=== PATIENT | male | born 1955 | race Caucasian/White ===

== ENCOUNTER 2024-02-19 20:26 | Emergency (ER) | payer OTHER, SELFPAY ==
--- NOTE | ~2024-02-19 | CT_ITS ---
EXAMINATION: CT ANGIOGRAM CHEST CLINICAL INFORMATION: Right-sided pain COMPARISON: Chest x-ray 02/19/2024 TECHNIQUE: Multiple axial images were obtained through the chest after the administration of 65 mL of Omnipaque 350 intravenous contrast. Extensive vascular post-processing including two-dimensional and three-dimensional reformatted images were created and reviewed on an independent workstation. This CT examination was performed using dose optimization techniques as appropriate, variously including the following: *Automated exposure control *Adjustment of mA and/or kV according to patient size (this includes techniques or standardized protocols for targeted exams where dose is matched to indication/reason for exam; i.e. extremities or head) *Use of iterative reconstruction technique DLP: 516 mGy-cm FINDINGS: No filling defects are seen in the main, lobar, or segmental pulmonary arteries to suggest the presence of pulmonary emboli. Mild bronchial wall thickening noted. No regions of consolidation bilaterally. No pneumothorax or pleural effusion. Thyroid gland is grossly unremarkable. There are subcentimeter mediastinal lymph nodes within the range of normal variation. Borderline cardiomegaly without pericardial effusion. Coronary artery calcifications are present. There is atherosclerotic calcification along the aorta. No axillary lymphadenopathy is present. Visualized portions of the upper abdomen are within normal limits. 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 CT/CT angio chest PE protocol IMPRESSION: 1. No pulmonary embolus identified. 2. Mild bronchial wall thickening, which can be seen with acute or chronic bronchitis. 3. Borderline cardiomegaly. 4. Coronary artery calcifications. Correlation with cardiac risk factors is recommended. VTE: negative Electronically signed by: Dominick Randolph MD 02/20/2024 03:25 AM EDT
--- NOTE | ~2024-02-19 | XR_ITS ---
EXAMINATION: XR CHEST CLINICAL INFORMATION: Chest pain COMPARISON: None available. TECHNIQUE: 2 views of the chest were obtained. FINDINGS: No significant abnormality is noted involving the heart, lungs, mediastinum, bony thorax or soft tissues. XR/XR chest 2V IMPRESSION: Unremarkable examination. Electronically signed by: Thomas Myers DO 02/19/2024 09:51 PM EDT
[2024-02-19 20:53] VITALS: BP 149/76; PULSE 63; RESP 14; TEMP 36.6; O2SAT 97; BMI 38.5
--- NOTE | 2024-02-19 20:54 | ECG_ITS ---
Test Reason : CHEST PAIN Blood Pressure : / mmHG Vent. Rate : 055 BPM Atrial Rate : 055 BPM P-R Int : 210 ms QRS Dur : 096 ms QT Int : 438 ms P-R-T Axes : 037 010 012 degrees QTc Int : 419 ms Sinus bradycardia with 1st degree A-V block with Premature atrial complexes Cannot rule out Anterior infarct , age undetermined Abnormal ECG No previous ECGs available Referred By: Lucy King Electronically Signed By:KIMBERLY WEBER
--- NOTE | 2024-02-19 21:13 | ED_ITS ---
HPI - General Adult General Chief complaint: Upper Respiratory Symptoms Stated complaint: lung pain h/o colon cancer Time Seen by Provider: 02/20/24 01:36 Source: patient Mode of arrival: ambulatory Limitations: no limitations History of Present Illness ED Provider: júnior ZAFAR narrative: Patient with history of localized colon cancer 2021 status post polypectomy comes here for nonspecific right-sided lung pain for last 3 4 days no shortness a breath no cough no rash no fever chills no urinary complaints except for slight burning when he urinates no hematuria no history of kidney stones Related Data Allergies Allergy/AdvReac Type Severity Reaction Status Date / Time ciprofloxacin [From Cipro] Allergy Shakiness Verified 02/19/24 20:55 Review of Systems 2 Review of Systems: Yes all other systems are reviewed and are negative [facility] Social History Social History Smoked in Last 30 Days: No Use of substances other than those prescribed or required for medical reasons: No Advance Directives: No Advance Directives Information Provided: Yes Do you have a plan to hurt others: No Plan Physical Exam ED Vital Signs: Vital Signs - 24 hr 02/19/24 20:53 02/20/24 01:15 02/20/24 02:28 Temperature 97.9 F 97.9 F Pulse Rate 63 52 52 Respiratory Rate 14 17 18 Blood Pressure 149/76 H 150/79 H 117/46 L Pulse Oximetry 97 99 98 Oxygen Delivery Method Room Air Room Air Room Air 02/20/24 02:46 02/20/24 04:00 Temperature 98.5 F Pulse Rate 48 L Respiratory Rate 16 Blood Pressure 115/52 L Pulse Oximetry 96 97 Oxygen Delivery Method Room Air Room Air BMI result Body Mass Index 38.5 Appearance: Alert. Oriented X3. No acute distress. Eyes: No pallor or icterus ENT: Pharynx normal. Oral Mucosa moist Neck: Normal inspection. Neck supple. CVS: Normal heart rate and rhythm. Pulses normal. Respiratory: No respiratory distress. Equal air entry bilateral, no wheezing/rales/rhonchi Abdomen: Soft and nontender. Bowel sounds are present, no mass palpable, no CVA tenderness Skin: Skin warm and dry. Normal skin color. Normal skin turgor. Extremities: No lower extremity edema. No calf tenderness Neuro: Oriented X 3. No motor deficit. Course Course Course Narrative: This is an RME: Additional HPI, ROS, PE not included below will be deferred to primary provider. RME assessment and note performed by: Lucy King PA-C This is a 68-year-old male who presents emergency department with complaints of right-sided chest pain that radiates into the back which occurred 3 days ago. Denies any shortness breast, chest pain, cough. He also reports burning with urination. History of colon cancer. Plan: Labs, EKG, chest x-ray, further ER evaluation needed. Medications Administered Discontinued Medications Generic Name Dose Route Start Last Admin Trade Name Freq PRN Reason Stop Dose Admin Iohexol 65 ml 02/20/24 02:28 02/20/24 02:29 Iohexol 350 Mg/Ml 100 Ml Infus..Btl IV 02/20/24 02:29 65 ml ONCE ONE Administration Medical Decision Making Medical Decision Making MDM Narrative: Patient nonspecific right-sided lung pain etiology not clear does have history of colon cancer will do CT angio to rule out PE/lung lesion which is negative for PE Differential Diagnosis Differential Diagnoses: The differential diagnosis associated with the presentation includes PE/pneumonia/lung mass/pleurisy Admission/Observation Consideration of admission/observation: Escalation of care including admission/observation considered Lab Data [facility] Lab Attestation statement: I reviewed the patient's lab results. 02/19/24 21:12 02/19/24 21:12 Labs: Lab Results 02/19/24 02/19/24 02/20/24 Range/Units 21:12 22:18 03:07 WBC 10.4 (4.8-10.8) X10*3/uL RBC 4.82 (4.60-5.80) X10*6/uL Hgb 15.1 (14.0-18.0) g/dl Hct 43.4 (42.0-52.0) % MCV 90.0 (80.0-98.0) fL MCH 31.3 (27.0-33.0) pg MCHC 34.8 (31.0-36.0) g/dl RDW 13.0 (11.0-16.0) % Plt Count 242 (160-400) X10*3/uL MPV 10.7 (9.4-12.4) fL Immature Gran % (Auto) 0.4 (0.0-0.4) % Neut % (Auto) 45.9 (45-73) % Lymph % (Auto) 41.7 H (20-40) % Lassen % (Auto) 7.4 (2-11) % Eos % (Auto) 3.8 (0-4) % Baso % (Auto) 0.8 (0-2) % Lymph # (Auto) 4.3 (1.2-4.9) X10*3/uL Lassen # (Auto) 0.8 (0.1-1.2) X10*3/uL Eos # (Auto) 0.4 (0.0-0.4) X10*3/uL Baso # (Auto) 0.1 (0.0-0.2) X10*3/uL Abs Immat Gran (auto) 0.04 H (0.00-0.03) X10*3/uL Absolute Neuts (auto) 4.8 (2.0-8.3) x10*3/uL Absolute Nucleated RBC 0.000 (0.0-0.012) X10*3/uL Nucleated RBC % (auto) 0.0 (0.0-0.2) /100WBC PT 12.6 (11.1-13.3) SEC INR 1.0 (0.9-1.1) Sodium 144 (135-145) mmol/L Potassium 3.4 (3.3-5.1) mmol/L Chloride 106 (96-108) mmol/L Carbon Dioxide 26 (22-29) mmol/L Anion Gap 15 (12-20) BUN 17 H (9-16) mg/dL Creatinine 1.01 (0.5-1.4) mg/dL Estim Creat Clear Calc 86.3 Estimated GFR > 60 Random Glucose 125 H (60-115) mg/dL Calcium 9.3 (8.4-10.2) mg/dL Total Bilirubin 0.5 (0.0-1.0) mg/dL Direct Bilirubin 0.2 (0.0-0.5) mg/dL AST 23 (5-37) U/L ALT 25 (0-40) U/L Alkaline Phosphatase 78 (39-117) U/L Troponin I High Sens 19.4 16.1 (<3.5-35.0) ng/L Total Protein 7.1 (6.5-8.0) g/dL Albumin 4.0 (3.5-5.0) g/dL Urine Color Yellow Urine Appearance Clear Urine pH 6.5 (5.0-9.0) Ur Specific Sherman 1.025 (1.005-1.025) Urine Protein Negative (Neg-Trace) mg/dL Urine Glucose (UA) Negative (Negative) mg/dL Urine Ketones Negative (Negative) mg/dL Urine Blood Negative (Negative) Urine Nitrite Negative (Negative) Ur Leukocyte Esterase Trace H (Negative) Urine RBC 0-2 (0-2) /HPF Urine WBC 0-5 (0-5) /HPF Ur Squamous Epith Cells 0-2 (0-2) /HPF Urine Bacteria None Seen (None Seen) Hyaline Casts 0-2 (0-2) /LPF Influenza Type A (PCR) NEGATIVE (Negative) Influenza Type B (PCR) NEGATIVE (Negative) RSV RNA Qual (PCR) NEGATIVE (Negative) SARS-CoV-2 RNA (RT-PCR) NEGATIVE (Negative) Independent Interpretation I performed an independent interpretation of an: CT Scan Radiology Impression Discussion of test interpretation with radiology: I have reviewed the radiologist's reading. Discharge Plan Discharge Clinical Impression: Right-sided chest pain Patient Disposition: Home, Self-Care Instructions: Noncardiac Chest Pain (ED) Additional Instructions: Your pain is unlikely from the heart Chest CT is negative for blood clot You might have bronchitis as the cause for the pain Tylenol/Motrin for pain as needed Interventions: ED Discharge Assessment Last Done: 02/20/24 04:00 Discharge Date/Time: 02/20/24 04:01 Print Language: [place]
[2024-02-19 21:17] LABS: MANUAL DIFF FLAG NO
[2024-02-19 21:18] LABS: Basophils Absolute Auto 0.1 X10*3/uL (0.0-0.2); Basophils Percent Auto 0.8 % (0-2); Eosinophils Absolute Auto 0.4 X10*3/uL (0.0-0.4); Eosinophils Percent Auto 3.8 % (0-4); Hematocrit 43.4 % (42.0-52.0); Hemoglobin 15.1 g/dl (14.0-18.0); Imm Gran Abs Auto 0.04 X10*3/uL (0.00-0.03); Imm Gran Pct Auto 0.4 % (0.0-0.4); Lymphocytes Absolute Auto 4.3 X10*3/uL (1.2-4.9); Lymphocytes Percent Auto 41.7 % (20-40); Mean Corpuscular HGB Conc 34.8 g/dl (31.0-36.0); Mean Corpuscular Hemoglobin 31.3 pg (27.0-33.0); Mean Platelet Volume 10.7 fL (9.4-12.4); Monocytes Absolute Auto 0.8 X10*3/uL (0.1-1.2); Monocytes Percent Auto 7.4 % (2-11); Neutrophils Absolute Auto 4.8 x10*3/uL (2.0-8.3); Neutrophils Percent Auto 45.9 % (45-73); Platelet Count 242 X10*3/uL (160-400); Red Blood Count 4.82 X10*6/uL (4.60-5.80); White Blood Count 10.4 X10*3/uL (4.8-10.8)
[2024-02-19 21:24] LABS: Prothrombin Time 12.6 SEC (11.1-13.3)
[2024-02-19 21:34] LABS: Alanine Aminotransferase 25 U/L (0-40); Alkaline Phosphatase 78 U/L (39-117); Anion Gap 15 (12-20); Aspartate Amino Transferase 23 U/L (5-37); Bilirubin Direct 0.2 mg/dL (0.0-0.5); Bilirubin Total 0.5 mg/dL (0.0-1.0); Blood Urea Nitrogen 17 mg/dL (9-16); Calcium 9.3 mg/dL (8.4-10.2); Carbon Dioxide 26 mmol/L (22-29); Chloride 106 mmol/L (96-108); Creatinine Clr Calc Pharmacy 86.3; Estimated Glomerular Filt Rate > 60; Glucose Random 125 mg/dL (60-115); Potassium 3.4 mmol/L (3.3-5.1); Sodium 144 mmol/L (135-145); Total Protein 7.1 g/dL (6.5-8.0)
[2024-02-19 21:41] LABS: Troponin-I High Sensitivity 19.4 ng/L (<3.5-35.0)
[2024-02-19 21:54] LABS: Influenza A PCR NEGATIVE (Negative); Influenza B PCR NEGATIVE (Negative); Resp Syncy Virus RNA Qual PCR NEGATIVE (Negative); SARS COV2 PCR INHOUSE NEGATIVE (Negative)
[2024-02-19 22:24] LABS: Appearance Urine Clear; Color Urine Yellow; Glucose Urine UA Negative (Negative); Leukocyte Esterase Urine Trace (Negative); Nitrite Urine Negative (Negative); PH 6.5 (5.0-9.0); Specific Gravity - Urine 1.025 (1.005-1.025); UMIC TRIGGER UACC YES; Urine Blood Negative (Negative); Urine Ketones Negative (Negative); Urine Protein Negative (Neg-Trace)
[2024-02-19 22:29] LABS: Bacteria Urine None Seen (None Seen); Hyaline Casts Urine 0-2 /LPF (0-2); RBC Urine 0-2 /HPF (0-2); Squamous Epithelial Cell Urine 0-2 /HPF (0-2); WBC Urine 0-5 /HPF (0-5)
[2024-02-20 01:15] VITALS: BP 150/79; PULSE 52; RESP 17; TEMP 36.6; O2SAT 99
[2024-02-20 02:28] VITALS: BP 117/46; PULSE 52; RESP 18; O2SAT 98
[2024-02-20] MEDS: iohexoL 350 MG/ML 100 ML INFUS..BTL 65 ML IV (02:29)
--- NOTE | 2024-02-20 02:41 | ECG_ITS ---
Test Reason : REDO Blood Pressure : / mmHG Vent. Rate : 057 BPM Atrial Rate : 057 BPM P-R Int : 248 ms QRS Dur : 090 ms QT Int : 438 ms P-R-T Axes : 050 022 003 degrees QTc Int : 426 ms Sinus bradycardia with 1st degree A-V block with Premature atrial complexes with Aberrant conduction Abnormal ECG When compared with ECG of 19-FEB-2024 20:57, No significant change was found Referred By: Juancho Sands Electronically Signed By:KIMBERLY WEBER
[2024-02-20 02:46] VITALS: PULSE 42; O2SAT 96
--- NOTE | 2024-02-20 02:48 | PC.NURSE ---
MD made aware of heart rhythm. pt states heart rate is baseline. ekg/repeat trop ordered by MD. skin wpd pt speaking full clear sentences. resting comfortably in stretcher at this time.
[2024-02-20 03:32] LABS: Troponin-I High Sensitivity 16.1 ng/L (<3.5-35.0)
[2024-02-20 04:00] VITALS: BP 115/52; PULSE 48; RESP 16; TEMP 36.9; O2SAT 97
== END 2024-02-20 04:01 | disposition home or self-care (01) ==
PROVIDERS: Physician Assistant Medical; Emergency Provider Internal Medicine; PCP Family Medicine
DX: R07.89 Other chest pain (principal); Z03.818 Encounter for observation for suspected exposure to other biological agents ruled out
CPT/HCPCS: 0241U; 36415; 71046; 71275; 80048; 80076; 81001; 84484; 85025; 85610; 93005; 99284; 99285; Q9967

== ENCOUNTER 2024-12-18 07:54 | Day surgery (SDC) | payer OTHER, SELFPAY ==
--- OUTSIDE RECORDS SUMMARY | 2024-10-21 11:45 | XMS_ITS | Encounter Summary ---
Author Name [facility] Address [address] [place] [address] Care Team Providers Care Program Specialist Name Role Phone [facility] SPRINGER Primary Care Provider UnavailSHERRY Collazo Primary Care Provider Unavailabl e Insurance Providers: All historical and current Section Date Range: From patient's date of to the date document was created. This section includes the names of all active insurance providers for the patient. Insurance Provider Type of Coverage Plan Name Start of Policy Coverage End of Policy Coverage Group Number Member ID Insurance Provider's Telephone Number Policy Dale's Name Patient's Relationship to Policy Dale MEDICARE (WNR) MEDICARE (M) PART A Mar 12, 2018 PART A [id number] JOSEFA ROBISON III PATIENT Selected Encounter This section includes the information on record at [place] for the Encounter. Date/Time Encounter Type Encounter Description Reason Provider Source Nov 17, 2023 01:00 PM OFFICE O/P EST MOD 30 MIN PM&RS PHYSICIAN ICD-10-CM M17.0 Bilateral primary osteoarthritis of knee CARSON HERNANDEZ Encounter Template Text not used by [facility] Assessments - Encounter Diagnoses This section includes the primary and secondary diagnoses documented for the Encounter. Date/Time Primary/Secondary Diagnosis Diagnosis Name Provider Source Nov 17, 2023 04:16 PM PRIMARY Bilateral primary osteoarthritis of knee CARSON HERNANDEZ [facility] Nov 17, 2023 04:16 PM SECONDARY Obesity, unspecified CARSON HERNANDEZ [facility] Plan of Treatment: Future Appointments (+ 6 months) and Future Tests (+/- 45 days) The Plan of Treatment section includes future care activities for the patient from [facility] This section includes future appointments and future orders which are active, pending or scheduled. Future Appointments This section includes appointments that were scheduled to occur 6 months from the date of the Encounter, up to a maximum of 20 appointments. The data comes from all [facility]. Appointment Date/Time Appointment Type Appointme nt Facility Name Dec 28, 2023 10:00 AM AMBULATORY - SURGERY [facility] Jan 30, 2024 10:00 AM AMBULATORY - MEDICINE [facility] Mar 26, 2024 09:00 AM AMBULATORY MEDICINE [facility] Active, Pending, and Scheduled Orders This section includes a listing of several types of active, pending, and scheduled orders, including clinic medications orders, diagnostic test orders, procedure orders and consult orders; where the start date of the order is 45 days before the date of the Encounter or 45 days after the date of theEncounter. The data comes from all [facility]. Test Date/Time Test Type Test Details Facility Name Oct 05, 2023 12:00 AM Laboratory - Chemi stry Order CHEM 7 BLOOD (SER GOLD) SERUM SP [facility] Social History: Smoking Status (Most current) and Tobacco Use (All prior to encounter date) This section includes the most current, and the historical, smoking and tobacco- related health factors from the [place] facility where the Encounter took place. Current Smoking Status This section includes the most current smoking, or tobacco-related health factor, from the [place] facility where the Encounter took place. Date/Time Current Smoking Status Comment Facil ity Jan 04, 2023 01:30 PM [place]-TOBACCO NEVER USED [facility] Tobacco Use History This section includes a history of the smoking, or tobacco-related health factors, that were collected on or before the date of the Encounter. The data comes from the [place] facility where the Encounter took place. Date/Time Smoking Status/Tobacco Use Comment F acility Dec 01, 2021 01:00 PM VA-TOBACCO NEVER USED [facility] Dec 16, 2020 02:00 PM VA-TOBACCO NEVER USED [facility] Sep 12, 2019 03:54 PM VA-TOBACCO NEVER USED [facility] Jul 18, 2018 09:31 AM VA-TOBACCO NEVER USED [facility] Jun 29, 2017 08:55 AM LIFETIME NON-TOBACCO USER [facility] Jun 09, 2016 01:15 PM LIFETIME NON-TOBACCO USER [facility] Jun 25, 2015 03:49 PM LIFETIME NON-TOBACCO USER [facility] Advance Directives: All historical and current Section Date Range: From patient's date of to the date document was created. This section includes ALL of a patient's completed or amended [place] Advance and Rescinded Directives. The entries below indicate that a directive exists for the patient, but an actual copy is not included with this document. The data comes from all [place] facilities. Date Advance Directives Provider Source May 02, 2014 ADVANCE DIRECTIVE DISCUSSION STEVEN MAGALLANES [facility] Radiology Reports: +/- 30 days of the encounter Radiology Reports For cases when an order for radiology services may have been completed prior to the date of the Encounter, the report list includes the Radiology Reports that were completed up to 30 days before dateof the Encounter. For cases when an order for radiology services may have been completed after the date of the Encounter, the report list also includes the Radiology Reports that were completed up to30 days after date of the Encounter. The data comes from all [place] treatment facilities. Date/Time Radiology Report Provider Source November 02, 2023 11:[address] CHEST W/IV CONT RAST: JOSEFA ROBISON II [id number] -[id number] M Exm Date: NOVEMBER 02, 2023@11:35 Req Phys: SHERRY GRULLON Loc: GIRISH KEITH MD (Req'g Loc Img Loc: CAT SCAN Service: [place] [address] (Case [id number] COMPLETE) CT THORAX W/CONT (CT Detailed) CPT:22303 Reason for Study: colon cancer assess for mets. (Case [id number] COMPLETE) CT ABD & PELVIS W/CONTRAST (CT Detailed) CPT:71972 Clinical History: PROVIDER CONTACT #:[id number] Report Status: Verified Date Reported: NOVEMBER 02, 2023 Date Verified: NOVEMBER 02, 2023 Friction Welding Machine Operator E-Sig:/ES/ROMAINE CAMARILLO MD Report: CT CHEST ABDOMEN AND PELVIS WITH IV CONTRAST HISTORY: History of colon cancer, interval assessment for metastatic disease. COMPARISON: CT chest abdomen pelvis dated 01/12/2023. TECHNIQUE: Images were obtained from the thoracic inlet to the pubic symphysis after the administration of oral and intravenous contrast. Sagittal and coronal reformatted images were obtained. FINDINGS: CHEST: LUNGS: No new or enlarging pulmonary nodule; previously noted 3 mm left upper lobe pulmonary nodule is no longer visualized. Scattered calcified granulomas. AIRWAYS: The central airways are patent. PLEURA: No pleural effusion or pneumothorax. MEDIASTINUM AND LYMPH NODES: No lymphadenopathy or mediastinal mass lesions. HEART AND GREAT VESSELS: The heart is within normal limits for size. Similar atherosclerotic calcification of the aortic arch and great vessels. Moderate to severe coronary artery calcifications. ABDOMEN/PELVIS: LIVER and PORTAL VEIN: Diffuse hypoattenuation of the hepatic parenchyma, suggestive of hepatic steatosis. No discrete hepatic mass lesions are visualized. GALLBLADDER/BILIARY: Unremarkable. PANCREAS: Unremarkable. SPLEEN: Unremarkable. ADRENAL GLANDS: Unremarkable. KIDNEYS: Bilateral foci of renal parenchymal thinning, which may represent parenchymal scarring, right greater than left. No hydronephrosis or renal calculi. GASTROINTESTINAL: No bowel obstruction. No colonic mass lesion visualized. The appendix is unremarkable (series 11 image 53). Scattered diverticulosis without acute diverticulitis. Small hiatal hernia. PERITONEUM: Unremarkable. VASCULAR: Note is made of scattered atherosclerotic calcifications of the abdominal aorta and branch vessels. LYMPH NODES: Unremarkable. PELVIS: No pelvic mass. Unchanged prostatic calcifications. Unchanged bilateral scrotal hydroceles with apparent peripheral calcifications. MUSCULOSKELETAL: No aggressive osseous lesion. There are multilevel degenerative changes within the thoracic and lumbar spine. Impression: No evidence of recurrent or metastatic disease. Primary Diagnostic Code: No Immediate Attention Required Primary Interpreting Staff: ROMAINE CAMARILLO MD, Staff Radiologist (Friction Welding Machine Operator) Primary Interpreting Resident: MINESH GAMING, Resident /ROMAINE GODDARD [facility] Encounter Notes: All associated encounter notes This section contains the clinical notes associated to the Encounter. Date/Time Encounter Note(s) Provider Source Nov 17, 2023 12:48 PM PHYSICIAN NOTE: LOCAL TITLE: PHYSIATRY PROGRESS NOTE STANDARD TITLE: PHYSICIAN NOTE DATE OF NOTE: NOV 17, 2023@12:48 ENTRY DATE: NOV 17, 2023@12:48:06 AUTHOR: CARSON HERNANDEZ EXP COSIGNER: URGENCY: STATUS: COMPLETED C: Bilateral knee pain 68-year-old male with hx of b/l knee OA returns to the clinic for a follow-up of bilateral knee pain. He reports 100% pain relief for 5 months with Durolane injections. He notes that the knees have started to bother more in the last few weeks, especially the left knee. He wishes to undergo bilateral knee Durolane today as he feels it has helped significantly with knee pain and range of motion. Denies knee buckling or swelling. He denies fevers, chills or infections. Denies trauma or injury to the knees. He had injured his left big toe in July-was evaluated at the ER for possible cellulitis. He states that the pain has subsided however he still continues to experience pain with prolonged walking. Pain is over the MTP lesii-s-ciiw were unremarkable. Reports intermittent foot swelling-relieved with foot elevation. 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 REVIEW OF SYSTEMS: there is no history of fever, chills, night sweats. Patient denies weight loss or recent infections. Denies falls. PAST MEDICAL HISTORY / ACTIVE PROBLEMS (as per chart): Code Description I10. 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 Smoking: denies EtOH: 1 drink a month Recreational drugs: Denies. FUNCTIONAL STATUS: Independent with ADL's and IADL's. No limitations. Ambulatory distance: 1/2 mile, get exercises on the elliptical 3 times a week Gait aid: none RADIOLOGIC FINDINGS: X-ray of right shoulder 05/2020: Impression: Degenerative changes of the acromioclavicular joint noted with associated small loose bodies present. Prominent subacromial spur noted. No definite evidence of acute fracture or dislocation noted. X-ray of left knee 2019: LEFT KNEE: The tibiofemoral joint demonstrates joint space narrowing with moderate osteophyte formation and subchondral sclerosis. Patellofemoral joint space asymmetric loss of joint space with moderate osteophyte formation. There is a large joint effusion in the suprapatellar region. Overlying soft tissues are grossly unremarkable. There is no acute fracture-dislocation. Impression: 1. Degenerative changes of the left knee. X-ray of left knee: There is no radiographic evidence of acute fracture or dislocation. The joint spaces are narrowed with osteophytes and sclerosis. There is no aggressive bone destruction. The soft tissues are unremarkable. Impression: Degenerative changes. X-ray of right knee: There is no radiographic evidence of acute fracture or dislocation. The joint spaces are narrowed with osteophytes and sclerosis. There is no aggressive bone destruction. The soft tissues are unremarkable. Impression: Degenerative changes. ALLERGIES: LISINOPRIL, PENICILLIN, SEPTRA DS MEDICATIONS: Active Outpatient Medications (including Supplies): ATENOLOL 50/CHLORTALIDONE 25MG TAB TAKE ONE TABLET BY ACTIVE (S) MOUTH ONCE DAILY FOR HIGH BLODD PRESSURE ATORVASTATIN CALCIUM 80MG TAB TAKE ONE-HALF TABLET BY ACTIVE MOUTH EVERY EVENING (FOR CHOLESTEROL) COLCHICINE 0.6MG TAB TAKE ONE TABLET BY MOUTH ONCE DAILY ACTIVE FOR ACUTE INFLAMMATION FROM GOUT ATTACK GABAPENTIN 100MG CAP TAKE ONE CAPSULE BY MOUTH EVERY ACTIVE (S) MORNING AND TAKE ONE CAPSULE EVERY EVENING AND TAKE THREE CAPSULES AT BEDTIME HYALURONATE NA (DUROLANE)20MG/ML SYR 3ML INJECT 60MG/3ML ACTIVE DIRECTLY INTO THE AFFECTED JOINT ONE TIME ONLY. FOR OSTEOARTHRITIS OF THE KNEE GIVEN IN CLINIC-SEE PROG. NOTE FOR LAST ADMIN DATE MICONAZOLE NITRATE 2% (SABI) TOP CREAM APPLY SMALL AMOUNT ACTIVE TO AFFECTED AREA TWICE A DAY FOR FUNGAL INFECTION OMEPRAZOLE 40MG EC CAP TAKE ONE CAPSULE BY MOUTH EVERY ACTIVE MORNING FOR HEARTBURN BEST TAKEN BEFORE BREAKFAST POTASSIUM CHLORIDE 10MEQ SA TAB TAKE TWO TABLETS BY MOUTH ACTIVE (S) TWICE A DAY (POTASSIUM SUPPLEMENT) SERTRALINE HCL 100MG TAB TAKE ONE-HALF TABLET BY MOUTH ACTIVE (S) ONCE DAILY FOR ANXIETY Non-VA ASPIRIN 81MG EC TAB 81MG MOUTH ONCE DAILY ACTIVE PHYSICAL EXAMINATION: Obese AAOx4 Patient maintains good eye contact and he is not in apparent distress. Patient answers questions appropriately. Pleasant. Not depressed. Bilateral knee: No increased warmth, no redness SKIN: no rashes, no erythema, no lesion noted b/l knees TENDERNESS: Patella tendon: negative bilaterally Quadriceps tendon: negative bilaterally Joint line tenderness: positive on the left Pes Anserine bursa tenderness: negative bilaterally KNEE PASSIVE RANGE OF MOTION: RIGHT LEFT Extension: -5/0 -5/0 Flexion: 100/120 100/120 Crepitus noted b/l knee Left foot focused exam: Minimal edema over the first MTP No increased warmth Minimal tenderness over the first MTP Functional ROM left ankle and toes Normal gait ASSESSMENT: 68-year-old male with b/l knee OA. 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 Performed bilateral knee Durolane injections. -Update knee x-rays. 2. Recommended weight loss. Recommended regular stretches. 3. Will refer to Podiatry for further treatment of left foot pain. -Pt to try colchicine as discussed with PCP. -Foot elevation. -Diclofenac gel application PRN. 4. Follow up in 6 months. PROCEDURE NOTE PROCEDURE NAME: Bilateral knee Durolane injections INDICATION: Osteoarthritis PERSON PERFORMING PROCEDURE: Carson Hernandez PA-C HYDRAULIC CHAIR ASSEMBLER: N/A Patient identified with 2 zhang identifiers (name and either full SSN or ) Verified Correct side and site verified (if laterality involved) Verified Accurate procedure consent form (completed and signed) Verified Agreement on the procedure to be done Verified Correct patient position Verified Radiology/imaging studies reviewed N/A Any required blood products, special equipment and/or implants present Not Applicable Administered antibiotics or fluids for irrigation N/A All medication AND solution names and doses verified Verified Safety precautions based on patient history or medication use (allergies) Verified Date time out performed: 11/17/23 by Mario Reyes. Patient is informed about the treatment benefits and the risks of Durolane injections. He is also informed about alternative treatments, their risks and benefits. Patient is identified using his full name, date of and his social security number. Patient agreed with the procedure and electronic consent is signed. 1. The injection area in the left suprapatellar recess is visualized with ultrasound, marked and disinfected with chloraprep. [place]oul[place] & Stretch solution has been used followed with the subcutaneous injection of Lidocaine 1% 0.5 ml to anesthetize the skin. Joint space is confirmed by injection of 3 ml of Ropivacaine 0.2%. Then, Durolane 60mg/3ml was injected slowly into the left suprapatellar space. 2. The injection area in the right suprapatellar recess is visualized with ultrasound, marked and disinfected with chloraprep. [place]oul[place] & Stretch solution has been used followed with the subcutaneous injection of Lidocaine 1% 0.5 ml to anesthetize the skin. Durolane 60mg/3ml was injected slowly into the right suprapatellar space. Patient tolerated the procedure well and reported relief of pain immediately after the procedure. After the procedure there was no swelling, bleeding or function abnormality noted. There were no systemic complaints suggestive of an anaphylactic reaction or intravascular injection. Post injection instructions were given to the patient. In case of pain the patient was advised to use cold compresses for the first 24-48 hrs over the injection area. In case of temperature, swelling, bleeding, increasing difficulty of using the extremity, patient was asked to report immediately to primary care physician or to the nearest emergency room. Patient demonstrated good understanding of the instructions by repeating back and asking questioned about zhang components of the instructions. /lianet/ Carson Hernandez PA-C Physician [place] Signed: 11/17/2023 16:16 CARSON HERNANDEZ [facility]
--- OUTSIDE RECORDS SUMMARY | 2024-10-21 11:45 | XMS_ITS | Continuity of Care Document ---
Author Name [facility] Organization [facility] Care Team Providers Care Post Anesthesia Room Nurse Name Role Phone [facility] Unavailable Unavailable Problems Combined list of problems from Department of Defense and Veterans Affairs facilities. It does not include entries that were removed or entered in error. 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 30, 2024 Entered By: KATHYA BAKER Comment: 2014 - EGD in [facility] - +Bravo'sAug 2023 Entered By: KATHYA BAKER Comment: 2020 - EGD - neg Bravo's [facility] Benign essential hypertension Active Condition [facility] Benign prostatic hypertrophy Active Condition Jan 30, 2024 Entered By: KATHYA BAKER Comment: hx recurrent UTI's, 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 [facility] Bilateral osteoarthritis of knees Active Condition [facility] Body mass index 30+ - obesity Active Condition [facility] Carcinoma of colon Active Condition [facility] Cellulitis and abscess of unspecified sites (ICD-9-CM 682.9) Active Condition [facility] CHEST PAIN NOS Active Condition [facility] Chronic low back pain Active Condition Jan 30, 2024 Entered By: KATHYA BAKER Comment: 07/07/15 MRI - multilevel degen dz most pronounced at L5-S1 [facility] Colonoscopy Active Condition Jan 30, 2024 Entered By: KATHYA BAKER Comment: Colonoscopy 08/03/21 - st diverticulosis, flat polyp ileocecal valve and prox ascending colon, 2mm polyps ascending colon, splenic flexure pedunculated polyp, descending colon 2mm polyp - Dr Dayan Phillip 2023 Entered By: KATHYA BAKER Comment: Colonoscopy 10/12/21 - Ileocecal valve large polyp (18-22mm) proximal right colon - pathology confirmed adenocarcinoma - Dr Yesi Wright [facility] COUNSELING, OTHER Active Condition [facility] 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, 2024 Entered By: KATHYA BAKER Comment: unknown if gout vs pseudogout - involves foot [facility] Degeneration of intervertebral disc Active Condition [facility] Elbow pain Active Condition [facility] Erectile dysfunction Active Condition [facility] Erectile Dysfunction * (ICD-9-CM 302.72) Active Condition [facility] Gastroesophageal reflux disease Active Condition [facility] GERD Active Condition [facility] History of male erectile disorder 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) Active Condition [facility] Low back pain Active Condition [facility] Malignant tumor of ascending colon Active Condition [facility] Obesity Active Condition [facility] Obesity * (ICD-9-CM 278.00) Active Condition [facility] Osteoarthritis of ankle Active Condition [facility] Osteoarthritis of knee Active Condition [facility] Osteoarthrosis involving the knee (ICD-9-CM 715.98) Active Condition [facility] OTHER SPECIFIED COUNSELING Active Condition [facility] Pain in joint involving ankle and foot (ICD-9-CM 719.47) Active Condition [facility] Plantar fasciitis Active Condition [facility] Polyp of colon [facility] Prediabetes Active Condition [facility] Primary adenocarcinoma of colon Active Condition [facility] Raised prostate specific antigen Active Condition [facility] Raised PSA Active Condition [facility] Senile nuclear sclerosis (ICD-9-CM 366.16) Active Condition [facility] Sensorineural hearing loss Active Condition [facility] Sensorineural hearing loss, bilateral (SCT [id number]) Active Condition [facility] Sleep Apnea (ICD-9-CM 780.57/786.09) Active Condition [facility] Subjective tinnitus ([facility] [id number]) Active Condition [facility] Tinnitus Active Condition [facility] Diagnosis: ICD-10-CM I10 Essential (primary) hypertension Active Diagnosis [facility] Diagnosis: ICD-10-CM D01.0 Carcinoma in situ of colon Active Diagnosis [facility] Diagnosis: ICD-10-CM C18.9 Malignant neoplasm of colon, unspecified Active Diagnosis [facility] Diagnosis: ICD-10-CM M20.21 Hallux rigidus, right foot Active Diagnosis [facility] Diagnosis: ICD-10-CM M17.0 Bilateral primary osteoarthritis of knee Active Diagnosis [facility] Diagnosis: ICD-10-CM B35.1 Tinea unguium Active Diagnosis [facility] Diagnosis: ICD-10-CM Z71.89 Other specified counseling Active Diagnosis [facility] Diagnosis: ICD-10-CM L03.119 Cellulitis of unspecified part of limb Active Diagnosis [facility] Medications Combined list of outpatient medications from Department of Defense and Veterans Affairs facilities.Medications provided include 1) outpatient medications from the last 15 months, and 2) patient-reported medications. Medication Details Route Status Patient Instructions Prescription Expires Prescription Number Last Dispense Date Ordering Provider Order Date Order Qty Source ASPIRIN 81MG TAB,CHEWABL E CHEW ONE TABLET BY MOUTH DAILY ORAL ACTIVE Edu JURADO 2005 [facility] ASPIRIN 81MG TAB,EC TAKE ONE TABLET BY MOUTH ONCE DAILY ORAL ACTIVE ARNOLDO COX 2015 [facility] ATENOLOL 50MG/CHLORT HALIDONE 25MG TAB TAKE 1 TABLET BY MOUTH ONCE DAILY FOR HIGH BLOOD PRESSURE ORAL ACTIVE 06/25/2025 [id number] 14 OctoberGENESIS 2024 90 [place] ATENOLOL 50MG/CHLORT HALIDONE 25MG TAB TAKE ONE TABLET BY MOUTH ONCE DAILY FOR HIGH BLODD PRESSURE ORAL 06/21/2024 [id number] 4 DO FREDY GRULLON 2023 90 [facility] ATENOLOL 50MG/CHLORT HALIDONE 25MG TAB TAKE ONE TABLET BY MOUTH ONCE DAILY ORAL ACTIVE KEVIN BAKER SA 2023 [place] ATORVASTATI N CA 80MG TAB TAKE ONE-HALF TABLET BY MOUTH EVERY EVENING (FOR CHOLESTE ROL) ORAL 10/05/2024 [id number] 5 DO FREDY GRULLON 2023 45 [place] [facility] ATORVASTATI N CA 80MG TAB TAKE ONE-HALF TABLET BY MOUTH ONCE DAILY ORAL ACTIVE KEVIN BAKER SA 2023 [place] CLOTRIMAZOL E 1% SOLN,TOP APPLY SMALL AMOUNT TO AFFECTED AREA TWICE A DAY FOR FUNGAL INFECTIO N OF THE SKIN TOPICA L ACTIVE 12/28/2024 [id number] DAVIS,TI MOTHY P 2023 30 [facility] COLCHICINE 0.6MG TAB TAKE ONE TABLET BY MOUTH ONCE DAILY FOR ACUTE INFLAMMA TION FROM GOUT ATTACK ORAL 10/06/2024 [id number] 5 DO FREDY GRULLON 2023 30 [facility] GABAPENTIN 100MG CAP TAKE ONE CAPSULE BY MOUTH EVERY MORNING AND TAKE ONE CAPSULE EVERY EVENING AND TAKE THREE CAPSULES AT BEDTIME ORAL DISCONT INUED 12/28/2023 [id number] 4 DO FREDY GRULLON 2022 450 [facility] GABAPENT[facility] 100MG CAP TAKE ONE CAPSULE BY MOUTH EVERY MORNING AND TAKE ONE CAPSULE EVERY EVENING AND TAKE THREE CAPSULES AT BEDTIME ORAL 10/05/2024 [id number] 5 DO FREDY GRULLON 2023 450 [facility] GABAPENTIN 100MG CAP TAKE 1 CAPSULE BY MOUTH TWICE DAILY ORAL ACTIVE KEVIN BAKER SA 2023 [place] HYALURONATE NA (DUROLANE) 20MG/ML INJ,SYRINGE ,3ML INJECT 60MG/3ML DIRECTLY INTO THE AFFECTED JOINT ONE TIME ONLY. FOR OSTEOART HRITIS OF THE KNEE GIVEN IN CLINIC-S EE PROG. NOTE FOR LAST ADMIN DATE INTRA- ARTICU LAR 06/13/2024 [id number] 4 SARAH,BLER MAYI 2023 2 [facility] HYALURON[facility] NA (DUROLANE) 20MG/ML INJ,SYRINGE ,3ML INJECT 60MG/3ML DIRECTLY INTO THE AFFECTED JOINT ONE TIME ONLY. FOR OSTEOART HRITIS OF THE KNEE GIVEN IN CLINIC-S EE PROG. NOTE FOR LAST ADMIN DATE INTRA- ARTICU LAR 12/07/2023 [id number] SARAHBLER MAYI 2023 2 [facility] MICONAZOLE NITRATE 2% (SABI) CREAM,TOP APPLY SMALL AMOUNT TO AFFECTED AREA TWICE A DAY FOR FUNGAL INFECTIO N TOPICA L 08/02/2024 [id number] JARON ROBERTSHeJIMMY AL 2023 142 [facility] OMEPRAZOLE 20MG CAP,EC TAKE TWO CAPSULES BY MOUTH EVERY MORNING 30 MINUTES BEFORE BREAKFAS T FOR HEARTBUR N ORAL SUSPEND ED 08/18/2025 [id number] 5 RA CORI SPRING[place] 2024 180 [place] OMEPRAZOLE 20MG CAP,EC TAKE TWO CAPSULES BY MOUTH EVERY MORNING 30 MINUTES BEFORE BREAKFAS T FOR HEARTBUR N ORAL DISCONT INUED 07/30/2024 [id number] KEVIN BAKER SA 2023 180 [place] OMEPRAZOLE 40MG CAP,EC TAKE ONE CAPSULE BY MOUTH EVERY MORNING FOR HEARTBUR N BEST TAKEN BEFORE BREAKFAS T ORAL 01/05/2024 [id number] 4 DO FREDY GRULLON 2022 90 [facility] POTASSIUM CHLORIDE 10MEQ TAB,SA TAKE TWO TABLETS BY MOUTH TWICE A DAY (POTASSI UM SUPPLEME NT) ORAL DISCONT INUED 12/23/2023 [id number] 4 DO FREDY GRULLON 2022 360 [facility] POTASSIUM CHLORIDE 10MEQ TAB,SA TAKE TWO TABLETS BY MOUTH TWICE A DAY (POTASSI UM SUPPLEME NT) ORAL 10/05/2024 [id number] 5 DO FREDY GRULLON 2023 360 [facility] POTASSIUM CHLORIDE 10MEQ TAB,SA TAKE TWO TABLETS BY MOUTH TWICE DAILY ORAL ACTIVE KEVIN BAKER SA 2023 [place] SELENIUM SULFIDE 2.5% LOTION APPLY DIRECTED TOPICALL Y ONCE DAILY TOPICA L ACTIVE KEVIN BAKER SA [place] SERTRALINE HCL 100MG TAB TAKE ONE-HALF TABLET BY MOUTH ONCE DAILY ORAL DISCONT INUED (EDIT) 01/05/2024 [id number] 4 DO FREDY GRULLON 2022 15 [facility] SERTRALINE HCL 100MG TAB TAKE ONE-HALF TABLET BY MOUTH ONCE DAILY FOR ANXIETY ORAL 10/05/2024 [id number] 5 DO FREDY GRULLON 2023 45 [facility] SERTRALINE HCL 100MG TAB TAKE ONE-HALF TABLET BY MOUTH ONCE DAILY ORAL ACTIVE KEVIN BAKER SA 2023 [facility] IELD Allergies, Adverse Reactions, Alerts Combined list of allergies from Department of Defense and Veterans Affairs facilities. It does not include entries that were removed or entered in error. Substance Category Reaction Severity Reaction type Status Date Reported Comments Source LISINOPRIL Propensity to adverse reactions to drug (finding) Tongue swelling active 3 [facility] LISINOPRIL Propensity to adverse reactions to drug (finding) Angioedema active 4 [facility] PENICILLIN Propensity to adverse reactions to drug (finding) Eruption active 3 [facility] PENICILLIN Propensity to adverse reactions to drug (finding) active 5 [facility] SEPTRA DS Propensity to adverse reactions to drug (finding) ANGIOEDEMA OF LIPS active 7 [facility] Immunizations Combined list of available immunizations from the Department of Defense and Veterans Affairs facilities. Immunization Series Date Given Administered By Site Reaction Lot Number CVX Code Drug Insurance Claims Analyst Status Comments Source PNEUMOCOCCAL CONJUGATE PCV20, POLYSACCHARID E [id number] CONJUGATE, ADJUVANT, PF 2021 216 complet ed [facility] COVID-19 (PFIZER), MRNA, LNP-S, PF, 30 MCG/0.3 ML DOSE 3 2021 208 complet ed PFR; [id number]; 2 [facility] COVID-19 (PFIZER), MRNA, LNP-S, PF, 30 MCG/0.3 ML DOSE 2 2020 208 complet ed PFR; [id number]; 1 [facility] COVID-19 (PFIZER), MRNA, LNP-S, PF, 30 MCG/0.3 ML DOSE 1 2020 208 complet ed PFR; [id number]; 1 [facility] ZOSTER (HISTORICAL) 2016 121 complet ed Proximal Left Arm [facility] TD(ADULT) UNSPECIFIED FORMULATION 2009 139 complet ed [facility] TETANUS (HISTORICAL) 1999 112 complet ed [facility] Results Combined list of recent chemistry, hematology and other laboratory results from Department of Defense and Veterans Affairs, ranging from 15 months to all on record, depending upon the facility. Order Name Results Value Reference Range Date Interpretation Specimen Comments Source HEPATITI S C ANTIBODY (HCV)-AR C HEPATITIS C VIRUS AB [PRESENCE] IN SERUM NON-REAC TIVE 03/26 Specimen Type: SERUM Comment: Hep C Ab: No HCV antibody detected. If recent infection is suspected or other evidence suggests HCV infection, consider HCV nucleic acid testing Ordering Provider: KATHYA BAKER Report Released Date/Time: Jan 30, 2024 11:10 AM Reporting Lab: [facility] [address] [facility] [address] Performing Lab: [facility] [address] [facility] [address] [facility] HEPATITI S B SURFACE ANTIGEN (HBsAg)- WH HEPATITIS B VIRUS SURFACE AG [PRESENCE] IN SERUM OR PLASMA BY IMMUNOASSA Y Non Reactive 03/26 Specimen Type: SERUM Comment: Hep B Surf Ag: Negative for HBsAg. Other markers of Hepatitis B virus are needed to ascertain Hepatitis B infection status. A Reactive result ( Positive prior to 03/25/13) is diagnostic of acute or chronic hepatitis B infection. The presence of Hepatitis B surface antigen is frequently associated with infectivity . Ordering Provider: KATHYA BAKER Report Released Date/Time: Jan 30, 2024 11:10 AM Reporting Lab: [facility] [address] [facility] [address] Performing Lab: [address] [address] [facility] URINALYS IS COLOR OF URINE Light-Ye llow 03/26 Specimen Type: URINE Comment: If Glucose = >500 and Ketones are positive, please alert the Physician. Ordering Provider: KATHYA BAKER Report Released Date/Time: Jan 30, 2024 11:10 AM Reporting Lab: [facility] [address] [facility] [address] Performing Lab: [facility] [address] [facility] [address] [facility] URINALYS IS APPEARANCE OF URINE Turbid 03/26 Specimen Type: URINE Comment: If Glucose = >500 and Ketones are positive, please alert the Physician. Ordering Provider: KATHYA BAKER Report Released Date/Time: Jan 30, 2024 11:10 AM Reporting Lab: [facility] [address] [facility] [address] Performing Lab: [facility] [address] [facility] [address] [facility] URINALYS IS GLUCOSE [MASS/VOLU ME] IN URINE Normalmg /dL 03/26 Specimen Type: URINE Comment: If Glucose = >500 and Ketones are positive, please alert the Physician. Ordering Provider: KATHYA BAKER Report Released Date/Time: Jan 30, 2024 11:10 AM Reporting Lab: [facility] [address] [facility] [address] Performing Lab: [facility] [address] [facility] [address] [facility] URINALYS IS KETONES [MASS/VOLU ME] IN URINE BY TEST STRIP NEGATIVE mg/dL 03/26 Specimen Type: URINE Comment: If Glucose = >500 and Ketones are positive, please alert the Physician. Ordering Provider: KATHYA BAKER Report Released Date/Time: Jan 30, 2024 11:10 AM Reporting Lab: [facility] [address] [facility] [address] Performing Lab: [facility] [address] [facility] [address] [facility] URINALYS IS ERYTHROCYT ES [PRESENCE] IN URINE SEDIMENT BY LIGHT MICROSCOPY NEGATIVE mg/dL 03/26 Specimen Type: URINE Comment: If Glucose = >500 and Ketones are positive, please alert the Physician. Ordering Provider: KATHYA BAKER Report Released Date/Time: Jan 30, 2024 11:10 AM Reporting Lab: [facility] [address] [address] Performing Lab: [facility] [address] [facility] [address] [facility] URINALYS IS PROTEIN [MASS/VOLU ME] IN URINE BY TEST STRIP NEGATIVE mg/dL 03/26 Specimen Type: URINE Comment: If Glucose = >500 and Ketones are positive, please alert the Physician. Ordering Provider: KATHYA BAKER Report Released Date/Time: Jan 30, 2024 11:10 AM Reporting Lab: [facility] [address] [facility] [address] Performing Lab: [facility] [address] [facility] [address] [facility] URINALYS IS NITRITE [PRESENCE] IN URINE NEGATIVE mg/dL 03/26 Specimen Type: URINE Comment: If Glucose = >500 and Ketones are positive, please alert the Physician. Ordering Provider: KATHYA BAKER Report Released Date/Time: Jan 30, 2024 11:10 AM Reporting Lab: [facility] [address] [facility] [address] Performing Lab: [facility] [address] [facility] [address] [facility] URINALYS IS BILIRUBIN. TOTAL [PRESENCE] IN URINE NEGATIVE mg/dL 03/26 Specimen Type: URINE Comment: If Glucose = >500 and Ketones are positive, please alert the Physician. Ordering Provider: KATHYA BAKER Report Released Date/Time: Jan 30, 2024 11:10 AM Reporting Lab: [facility] [address] [facility] [address] Performing Lab: [facility] [address] [facility] [address] [facility] URINALYS IS SPECIFIC GRAVITY OF URINE BY REFRACTOME TRY 1.015 1.016 - 1.022 03/26 L Specimen Type: URINE Comment: If Glucose = >500 and Ketones are positive, please alert the Physician. Ordering Provider: KATHYA BAKER Report Released Date/Time: Jan 30, 2024 11:10 AM Reporting Lab: [facility] [address] [facility] [address] Performing Lab: [facility] [address] [address] [facility] URINALYS IS PH OF URINE BY TEST STRIP 6.5 5.0 - 9.0 03/26 Specimen Type: URINE Comment: If Glucose = >500 and Ketones are positive, please alert the Physician. Ordering Provider: KATHYA BAKER Report Released Date/Time: Jan 30, 2024 11:10 AM Reporting Lab: [facility] [address] [address] Performing Lab: [facility] [address] [address] [facility] URINALYS IS UROBILINOG EN [MASS/VOLU ME] IN URINE BY TEST STRIP Normalmg /dL <2.0 - 2.0 03/26 Specimen Type: URINE Comment: If Glucose = >500 and Ketones are positive, please alert the Physician. Ordering Provider: KATHYA BAKER Report Released Date/Time: Jan 30, 2024 11:10 AM Reporting Lab: [facility] [address] [facility] [address] Performing Lab: [facility] [address] [facility] [address] [facility] URINALYS IS LEUKOCYTE ESTERASE [PRESENCE] IN URINE BY TEST STRIP LARGE 03/26 Specimen Type: URINE Comment: If Glucose = >500 and Ketones are positive, please alert the Physician. Ordering Provider: KATHYA BAKER Report Released Date/Time: Jan 30, 2024 11:10 AM Reporting Lab: [facility] [address] [facility] [address] Performing Lab: [facility] [address] [facility] [address] [facility] HEMOGLOB IN A1C PANEL HEMOGLOBIN A1C/HEMOGL OBIN.TOTAL IN BLOOD BY HPLC 5.7 4.0 - 5.6 03/26 H Specimen Type: BLOOD Comment: Values obtained from A1C measurement s can vary. For atypical A1C assays, a reported value of 7.0 could actually be between 6.72 and 7.28 if measured by a reference method. A reported value of 9.0 could actually be between 8.73 and 9.27. Ref: http://www. ngsp.org/[place] Pdata.asp Ordering Provider: KATHYA BAKER Report Released Date/Time: Jan 30, 2024 11:10 AM Reporting Lab: [address] [address] Performing Lab: [address] [address] [facility] CBC AND DIFF (AUTO) LEUKOCYTES [#/VOLUME] IN BLOOD BY AUTOMATED COUNT 9.84 10*3/uL 4.50 - 11.00 03/26 Specimen Type: BLOOD No comment entered. Ordering Provider: KATHYA BAKER Report Released Date/Time: Jan 30, 2024 11:10 AM Reporting Lab: [address] [address] Performing Lab: [facility] [address] [address] [facility] CBC AND DIFF (AUTO) ERYTHROCYT ES [#/VOLUME] IN BLOOD BY AUTOMATED COUNT 4.93 10*6/uL 4.23 - 5.66 03/26 Specimen Type: BLOOD No comment entered. Ordering Provider: KATHYA BAKER Report Released Date/Time: Jan 30, 2024 11:10 AM Reporting Lab: [facility] [address] [facility] [address] Performing Lab: [facility] [address] [facility] [address] [facility] CBC AND DIFF (AUTO) HEMOGLOBIN [MASS/VOLU ME] IN BLOOD 15.1 g/dL 12.8 - 17 03/26 Specimen Type: BLOOD No comment entered. Ordering Provider: KATHYA BAKER Report Released Date/Time: Jan 30, 2024 11:10 AM Reporting Lab: [facility] [address] [facility] [address] Performing Lab: [facility] [address] [address] [facility] CBC AND DIFF (AUTO) HEMATOCRIT [VOLUME FRACTION] OF BLOOD BY AUTOMATED COUNT 43.9 39.2 - 50.4 03/26 Specimen Type: BLOOD No comment entered. Ordering Provider: KATHYA BAKER Report Released Date/Time: Jan 30, 2024 11:10 AM Reporting Lab: [facility] [address] [facility] [address] Performing Lab: [facility] [address] [facility] [address] [facility] CBC AND DIFF (AUTO) MCV [ENTITIC VOLUME] BY AUTOMATED COUNT 89.0 fL 82 - 99 03/26 Specimen Type: BLOOD No comment entered. Ordering Provider: KATHYA BAKER Report Released Date/Time: Jan 30, 2024 11:10 AM Reporting Lab: [facility] [address] [facility] [address] Performing Lab: [facility] [address] [facility] [address] [facility] CBC AND DIFF (AUTO) MCHC [MASS/VOLU ME] BY AUTOMATED COUNT 34.4 g/dL 30.8 - 35.1 03/26 Specimen Type: BLOOD No comment entered. Ordering Provider: KATHYA BAKER Report Released Date/Time: Jan 30, 2024 11:10 AM Reporting Lab: [facility] [address] [facility] [address] Performing Lab: [facility] [address] [facility] [address] [facility] CBC AND DIFF (AUTO) PLATELETS [#/VOLUME] IN BLOOD BY AUTOMATED COUNT 230 10*3/uL 140 - 360 03/26 Specimen Type: BLOOD No comment entered. Ordering Provider: KATHYA BAKER Report Released Date/Time: Jan 30, 2024 11:10 AM Reporting Lab: [facility] [place] [address] [address] Performing Lab: [facility] [place] [address] [address] [facility] [place] [facility] CBC AND DIFF (AUTO) ERYTHROCYT E DISTRIBUTI ON WIDTH [RATIO] BY AUTOMATED COUNT 12.2 12.0 - 16.0 03/26 Specimen Type: BLOOD No comment entered. Ordering Provider: KATHYA BAKER Report Released Date/Time: Jan 30, 2024 11:10 AM Reporting Lab: [facility] [place] [address] [address] Performing Lab: [facility] [place] [address] [address] [facility] [place] [facility] CBC AND DIFF (AUTO) MONOCYTES [#/VOLUME] IN BLOOD BY AUTOMATED COUNT 0.70 10*3/uL 0.30 - 1.10 03/26 Specimen Type: BLOOD No comment entered. Ordering Provider: KATHYA BAKER Report Released Date/Time: Jan 30, 2024 11:10 AM Reporting Lab: [facility] [place] [address] [address] Performing Lab: [facility] [place] [address] [place] [address] [facility] CBC AND DIFF (AUTO) MCH [ENTITIC MASS] BY AUTOMATED COUNT 30.6 pg 26.2 - 32.6 03/26 Specimen Type: BLOOD No comment entered. Ordering Provider: KATHYA BAKER Report Released Date/Time: Jan 30, 2024 11:10 AM Reporting Lab: [facility] [place] [facility] [address] [facility] [address] Performing Lab: [facility] [place] [facility] [address] [facility] [address] [facility] CBC AND DIFF (AUTO) NEUTROPHIL S/100 LEUKOCYTES IN BLOOD BY AUTOMATED COUNT 39.0 43.7 - 75.8 03/26 L Specimen Type: BLOOD No comment entered. Ordering Provider: KATHYA BAKER Report Released Date/Time: Jan 30, 2024 11:10 AM Reporting Lab: [facility] [place] [facility] [address] [place] [phone] Performing Lab: [facility] [place] [address] [place] [phone] [facility] CBC AND DIFF (AUTO) LYMPHOCYTE S/100 LEUKOCYTES IN BLOOD BY AUTOMATED COUNT 48.9 14.0 - 42.3 03/26 H Specimen Type: BLOOD No comment entered. Ordering Provider: KATHYA BAKER Report Released Date/Time: Jan 30, 2024 11:10 AM Reporting Lab: [facility] [place] [facility] [address] [place] [phone] Performing Lab: [facility] [place] [address] [place] [phone] [facility] CBC AND DIFF (AUTO) MONOCYTES/ 100 LEUKOCYTES IN BLOOD BY AUTOMATED COUNT 7.1 5.1 - 13.7 03/26 Specimen Type: BLOOD No comment entered. Ordering Provider: KATHYA BAKER Report Released Date/Time: Jan 30, 2024 11:10 AM Reporting Lab: [facility] [place] [facility] [address] [place] [phone] Performing Lab: [facility] [place] [facility] [address] [facility] [address] [facility] [place] [facility] CBC AND DIFF (AUTO) EOSINOPHIL S/100 LEUKOCYTES IN BLOOD BY AUTOMATED COUNT 3.8 0.4 - 6.8 03/26 Specimen Type: BLOOD No comment entered. Ordering Provider: KATHYA BAKER Report Released Date/Time: Jan 30, 2024 11:10 AM Reporting Lab: [facility] [place] [facility] [address] [facility] [address] Performing Lab: [facility] [place] [facility] [address] [facility] [address] [facility] [place] CBC AND DIFF (AUTO) BASOPHILS/ 100 LEUKOCYTES IN BLOOD BY AUTOMATED COUNT 0.7 0.1 - 2.0 03/26 Specimen Type: BLOOD No comment entered. Ordering Provider: KATHYA BAKER Report Released Date/Time: Jan 30, 2024 11:10 AM Reporting Lab: [facility] [place] [facility] [address] [facility] [address] Performing Lab: [facility] [place] [address] [address] [facility] [place] [facility] CBC AND DIFF (AUTO) NEUTROPHIL S [#/VOLUME] IN BLOOD BY AUTOMATED COUNT 3.84 10*3/uL 2.20 - 7.60 03/26 Specimen Type: BLOOD No comment entered. Ordering Provider: KATHYA BAKER Report Released Date/Time: Jan 30, 2024 11:10 AM Reporting Lab: [facility] [place] [facility] [address] [facility] [address] Performing Lab: [facility] [place] [address] [address] [facility] [place] CBC AND DIFF (AUTO) LYMPHOCYTE S [#/VOLUME] IN BLOOD BY AUTOMATED COUNT 4.81 10*3/uL 1.00 - 3.20 03/26 H Specimen Type: BLOOD No comment entered. Ordering Provider: KATHYA BAKER Report Released Date/Time: Jan 30, 2024 11:10 AM Reporting Lab: [facility] [place] [facility] [address] [facility] [address] Performing Lab: [facility] [place] [facility] [address] [facility] [address] [facility] CBC AND DIFF (AUTO) EOSINOPHIL S [#/VOLUME] IN BLOOD BY AUTOMATED COUNT 0.37 10*3/uL 0.03 - 0.44 03/26 Specimen Type: BLOOD No comment entered. Ordering Provider: KATHYA BAKER Report Released Date/Time: Jan 30, 2024 11:10 AM Reporting Lab: [facility] [place] [facility] [address] [facility] [address] Performing Lab: [facility] [place] [facility] [address] [facility] [address] [facility] CBC AND DIFF (AUTO) BASOPHILS [#/VOLUME] IN BLOOD BY AUTOMATED COUNT 0.07 10*3/uL 0.01 - 0.13 03/26 Specimen Type: BLOOD No comment entered. Ordering Provider: KATHYA BAKER Report Released Date/Time: Jan 30, 2024 11:10 AM Reporting Lab: [facility] [place] [facility] [address] [facility] [address] Performing Lab: [facility] [place] [facility] [address] [facility] [address] [facility] CBC AND DIFF (AUTO) IMMATURE GRANULOCYT ES/100 LEUKOCYTES IN BLOOD BY AUTOMATED COUNT 0.5 0.0 - 0.7 03/26 Specimen Type: BLOOD No comment entered. Ordering Provider: KATHYA BAKER Report Released Date/Time: Jan 30, 2024 11:10 AM Reporting Lab: [facility] [place] [facility] [address] [facility] [address] Performing Lab: [facility] [place] [facility] [address] [facility] [address] [facility] CBC AND DIFF (AUTO) IMMATURE GRANULOCYT ES [#/VOLUME] IN BLOOD 0.05 10*3/uL 0.00 - 0.06 03/26 Specimen Type: BLOOD No comment entered. Ordering Provider: KATHYA BAKER Report Released Date/Time: Jan 30, 2024 11:10 AM Reporting Lab: [facility] [place] [facility] [address] [facility] [address] Performing Lab: [facility] [place] [facility] [address] [facility] [address] [facility] [place] [facility] CBC AND DIFF (AUTO) NRBC % 0.0 0.0 - 0.0 03/26 Specimen Type: BLOOD No comment entered. Ordering Provider: KATHYA BAKER Report Released Date/Time: Jan 30, 2024 11:10 AM Reporting Lab: [facility] [place] [facility] [address] [facility] [address] Performing Lab: [facility] [place] [address] [address] [facility] [place] [facility] CBC AND DIFF (AUTO) NRBC, ABS 0.00 10*3/uL 0.00 - 0.00 03/26 Specimen Type: BLOOD No comment entered. Ordering Provider: KATHYA BAKER Report Released Date/Time: Jan 30, 2024 11:10 AM Reporting Lab: [facility] [place] [facility] [address] [facility] [address] Performing Lab: [facility] [place] [address] [address] [facility] [place] [facility] URIC ACID URATE [MASS/VOLU ME] IN SERUM OR PLASMA 8.4 mg/dL 3.5 - 7.2 03/26 H Specimen Type: SERUM No comment entered. Ordering Provider: KATHYA BAKER Report Released Date/Time: Jan 30, 2024 11:10 AM Reporting Lab: [facility] [place] [facility] [address] [facility] [address] Performing Lab: [facility] [place] [address] [address] [facility] [place] [facility] LIPID PANEL FASTING CHOLESTERO L [MASS/VOLU ME] IN SERUM OR PLASMA 113 mg/dL 03/26 Specimen Type: SERUM No comment entered. Ordering Provider: KATHYA BAKER Report Released Date/Time: Jan 30, 2024 11:10 AM Reporting Lab: [facility] [place] [facility] [address] [facility] [address] Performing Lab: [facility] [place] [facility] [address] [facility] [address] [facility] [place] [facility] LIPID PANEL FASTING TRIGLYCERI DE [MASS/VOLU ME] IN SERUM OR PLASMA 91 mg/dL 0 - 150 03/26 Specimen Type: SERUM No comment entered. Ordering Provider: KATHYA BAKER Report Released Date/Time: Jan 30, 2024 11:10 AM Reporting Lab: [facility] [place] [address] [address] Performing Lab: [facility] [place] [address] [address] [facility] [place] [facility] LIPID PANEL FASTING CHOLESTERO L IN LDL [MASS/VOLU ME] IN SERUM OR PLASMA BY CALCULATIO N 57 mg/dL 0 - 129 03/26 Specimen Type: SERUM No comment entered. Ordering Provider: KATHYA BAKER Report Released Date/Time: Jan 30, 2024 11:10 AM Reporting Lab: [facility] [place] [address] [address] Performing Lab: [facility] [place] [address] [address] [facility] [place] [facility] LIPID PANEL FASTING CHOLESTERO L.TOTAL/CH OLESTEROL IN HDL [MASS RATIO] IN SERUM OR PLASMA 3.0 03/26 Specimen Type: SERUM No comment entered. Ordering Provider: KATHYA BAKER Report Released Date/Time: Jan 30, 2024 11:10 AM Reporting Lab: [facility] [place] [address] [address] Performing Lab: [facility] [place] [address] [place] [address] [facility] [place] [facility] LIPID PANEL FASTING CHOLESTERO L IN HDL [MASS/VOLU ME] IN SERUM OR PLASMA 38 mg/dL 40 - 60 03/26 L Specimen Type: SERUM No comment entered. Ordering Provider: KATHYA BAKER Report Released Date/Time: Jan 30, 2024 11:10 AM Reporting Lab: [facility] [place] [facility] [address] [facility] [address] Performing Lab: [facility] [place] [facility] [address] [facility] [address] [facility] [place] [facility] LIVER FUNCTION PROTEIN [MASS/VOLU ME] IN SERUM OR PLASMA 6.7 g/dL 6.0 - 8.3 03/26 Specimen Type: SERUM No comment entered. Ordering Provider: KATHYA BAKER Report Released Date/Time: Jan 30, 2024 11:10 AM Reporting Lab: [facility] [place] [facility] [address] [facility] [address] Performing Lab: [facility] [place] [facility] [address] [facility] [address] [facility] [place] [facility] LIVER FUNCTION ALBUMIN [MASS/VOLU ME] IN SERUM OR PLASMA 3.7 g/dL 3.5 - 5.0 03/26 Specimen Type: SERUM No comment entered. Ordering Provider: KATHYA BAKER Report Released Date/Time: Jan 30, 2024 11:10 AM Reporting Lab: [facility] [place] [facility] [address] [facility] [address] Performing Lab: [facility] [place] [facility] [address] [facility] [address] [facility] [place] [facility] LIVER FUNCTION ALKALINE PHOSPHATAS E [ENZYMATIC ACTIVITY/V OLUME] IN SERUM OR PLASMA 82 U/L 40 - 150 03/26 Specimen Type: SERUM No comment entered. Ordering Provider: KATHYA BAKER Report Released Date/Time: Jan 30, 2024 11:10 AM Reporting Lab: [facility] [place] [facility] [address] [facility] [address] Performing Lab: [facility] [place] [facility] [address] [facility] [address] [facility] [place] [facility] LIVER FUNCTION ASPARTATE AMINOTRANS FERASE [ENZYMATIC ACTIVITY/V OLUME] IN SERUM OR PLASMA 21 U/L 5 - 34 03/26 Specimen Type: SERUM No comment entered. Ordering Provider: KATHYA BAKER Report Released Date/Time: Jan 30, 2024 11:10 AM Reporting Lab: [facility] [place] [facility] [address] [facility] [address] Performing Lab: [facility] [place] [facility] [address] [facility] [address] [facility] [place] [facility] LIVER FUNCTION ALANINE AMINOTRANS FERASE [ENZYMATIC ACTIVITY/V OLUME] IN SERUM OR PLASMA 21 U/L 03/26 Specimen Type: SERUM No comment entered. Ordering Provider: KATHYA BAKER Report Released Date/Time: Jan 30, 2024 11:10 AM Reporting Lab: [facility] [place] [facility] [address] [facility] [address] Performing Lab: [facility] [place] [facility] [address] [facility] [address] [facility] LIVER FUNCTION BILIRUBIN. TOTAL [MASS/VOLU ME] IN SERUM OR PLASMA 0.7 mg/dL 0.2 - 1.2 03/26 Specimen Type: SERUM No comment entered. Ordering Provider: KATHYA BAKER Report Released Date/Time: Jan 30, 2024 11:10 AM Reporting Lab: [facility] [place] [facility] [address] [facility] [address] Performing Lab: [facility] [place] [facility] [address] [facility] [address] [facility] [place] [facility] BASIC METABOLI C PANEL (fasting ) UREA NITROGEN [MASS/VOLU ME] IN SERUM OR PLASMA 15 mg/dL 7 - 25 03/26 Specimen Type: SERUM No comment entered. Ordering Provider: KATHYA BAKER Report Released Date/Time: Jan 30, 2024 11:10 AM Reporting Lab: [facility] [place] [facility] [address] [facility] [address] Performing Lab: [facility] [place] [facility] [address] [facility] [address] [facility] [place] [facility] BASIC METABOLI C PANEL (fasting ) GLUCOSE [MASS/VOLU ME] IN SERUM OR PLASMA 93 mg/dL 65 - 100 03/26 Specimen Type: SERUM No comment entered. Ordering Provider: KATHYA BAKER Report Released Date/Time: Jan 30, 2024 11:10 AM Reporting Lab: [facility] [place] [facility] [address] [facility] [address] Performing Lab: [facility] [place] [address] [address] [facility] BASIC METABOLI C PANEL (fasting ) SODIUM [MOLES/VOL UME] IN SERUM OR PLASMA 141 mmol/L 135 - 145 03/26 Specimen Type: SERUM No comment entered. Ordering Provider: KATHYA BAKER Report Released Date/Time: Jan 30, 2024 11:10 AM Reporting Lab: [facility] [place] [address] [address] Performing Lab: [facility] [place] [address] [address] [facility] [place] [facility] BASIC METABOLI C PANEL (fasting ) POTASSIUM [MOLES/VOL UME] IN SERUM OR PLASMA 3.5 mmol/L 3.5 - 5.0 03/26 Specimen Type: SERUM No comment entered. Ordering Provider: KATHYA BAKER Report Released Date/Time: Jan 30, 2024 11:10 AM Reporting Lab: [facility] [place] [address] [address] Performing Lab[facility] [place] [facility] [address] [facility] [address] [facility] [place] [facility] BASIC METABOLI C PANEL (fasting ) CHLORIDE [MOLES/VOL UME] IN SERUM OR PLASMA 103 mmol/L 100 - 110 03/26 Specimen Type: SERUM No comment entered. Ordering Provider: KATHYA BAKER Report Released Date/Time: Jan 30, 2024 11:10 AM Reporting Lab: [facility] [place] [facility] [address] [facility] [address] Performing Lab: [facility] [place] [address] [address] [facility] [place] [facility] BASIC METABOLI C PANEL (fasting ) CARBON DIOXIDE, TOTAL [MOLES/VOL UME] IN SERUM OR PLASMA 27 meq/L 20 - 30 03/26 Specimen Type: SERUM No comment entered. Ordering Provider: KATHYA BAKER Report Released Date/Time: Jan 30, 2024 11:10 AM Reporting Lab: [facility] [place] [address] [address] Performing Lab: [facility] [place] [address] [address] [facility] BASIC METABOLI C PANEL (fasting ) CREATININE [MASS/VOLU ME] IN SERUM OR PLASMA 0.83 mg/dL 0.50 - 1.40 03/26 Specimen Type: SERUM No comment entered. Ordering Provider: KATHYA BAKER Report Released Date/Time: Jan 30, 2024 11:10 AM Reporting Lab: [facility] [place] [address] [address] Performing Lab: [facility] [place] [address] [address] [facility] [place] [facility] BASIC METABOLI C PANEL (fasting ) GLOMERULAR FILTRATION RATE/1.73 SQ M.PREDICTE D [VOLUME RATE/AREA] IN SERUM, PLASMA OR BLOOD BY CREATININE -BASED FORMULA (CKD-EPI 2020) >90mL/mi n 60 03/26 Specimen Type: SERUM No comment entered. Ordering Provider: KATHYA BAKER Report Released Date/Time: Jan 30, 2024 11:10 AM Reporting Lab: [facility] [place] [address] [address] Performing Lab: [facility] [place] [facility] [address] [facility] [address] [facility] [place] [facility] Vital Signs Combined list of inpatient and outpatient Vital Signs from Department of Defense and Veterans Affairs, ranging from 12 months to all on record, depending upon the facility. Vital Sign Value Date Comments Source SYSTOLIC BLOOD PRESSURE 140 06/24/19 25 15:39:18 [facility] DIASTOLIC BLOOD PRESSURE 68 025 15:39:18 [facility] PULSE OXIMETRY 96 06/24/2024 15:39:18 [facility] WEIGHT 248.8 06/24/2024 15:39:18 [facility] BMI 36 kg/m2 06/24/2024 15:39:18 [facility] PAIN 0 06/24/2024 15:39:18 [facility] HEIGHT 70 06/24/2024 15:39:18 [facility] TEMPERATURE 96.1 06/24/2024 15:39:18 [facility] PULSE 58 06/24/2024 15:39:18 [facility] RESPIRATION 20 06/24/2024 15:39:18 [facility] SYSTOLIC BLOOD PRESSURE 125 03/26/20 24 09:10:36 [facility] DIASTOLIC BLOOD PRESSURE 74 024 09:10:36 [facility] PULSE OXIMETRY 97 03/26/2024 09:10:36 [facility] WEIGHT 253.6 03/26/2024 09:10:36 [facility] BMI 36 kg/m2 03/26/2024 09:10:36 [facility] PAIN 0 03/26/2024 09:10:36 [facility] HEIGHT 70 03/26/2024 09:10:36 [facility] TEMPERATURE 98.1 03/26/2024 09:10:36 [facility] PULSE 69 03/26/2024 09:10:36 [facility] RESPIRATION 18 03/26/2024 09:10:36 [facility] SYSTOLIC BLOOD PRESSURE 122 01/30/20 24 10:12:03 [facility] DIASTOLIC BLOOD PRESSURE 54 024 10:12:03 [facility] PULSE OXIMETRY 97 01/30/2024 10:12:03 [facility] WEIGHT 260.2 01/30/2024 10:12:03 [facility] BMI 39 kg/m2 01/30/2024 10:12:03 [facility] PAIN 0 01/30/2024 10[facility]12:03 [facility] HEIGHT 69 01/30/2024 10:12:03 [facility] TEMPERATURE 98.2 01/30/2024 10:12:03 [facility] PULSE 47 01/30/2024 10:12:03 [facility] RESPIRATION 16 01/30/2024 10:12:03 [facility] Encounters Combined list of: 1) Encounters from Department of Veterans Affairs facilities going backup to the last 18 months, not all VA inpatient encounters are included; 2) Encounters from the Department of Defense facilities going backup to 280 months. 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 LM SCHAEFFER ARMANDO MATT 07/18 [facility] HC PRO PHONE CALL 5-10 MIN [id number] Diagnos is: ICD-10- CM 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 LYNNE Mario 07/19 [facility] OFFICE O/P EST MOD 30 MIN [id number] Diagnos is: ICD-10- CM B35.1 Tinea unguium DANNY GRULLON 08/02 [facility] Outpatient Encounter [id number] 08/30 [facility] Outpatient Encounter [id number] 09/28 [facility] OFFICE O/P EST LOW 20 MIN [id number] Diagnos is: ICD-10- CM 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, unspeci fied DANNY GRULLON 10/04 [facility] Outpatient Encounter [id number] 11/01 [facility] OFFICE O/P EST MOD 30 MIN [id number] Diagnos is: ICD-10- CM M17.0 Bilater al primary osteoar thritis of knee CURTIS SMITH 11/16 [facility] Outpatient Encounter [id number] 11/16 [facility] Outpatient Encounter [id number] 12/24 [facility] Outpatient Encounter [id number] DANNY GRULLON 12/24 [facility] [place] [facility] OFF/OP CNSLTJ NEW/EST LOW 30 [id number] Diagnos is: ICD-10- CM M20.21 Hallux rigidus , right foot GORECKI,GE RALD A 12/27 [facility] [facility] Outpatient Encounter [id number] 01/14 [facility] Outpatient Encounter [id number] Diagnos is: ICD-10- CM 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, unspeci fied DANNY GRULLON 01/15 [facility] En[facility] [id number] 01/16 [facility] Outpatient Encounter [id number] 01/29 [facility] [place] [facility] OFFICE O/P NEW MOD 45 MIN [id number] Diagnos is: ICD-10- CM 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 JOSE BAKER 01/29 [place] [facility] Outpatient Encounter [id number] 02/12 [place] [facility] En[facility] [id number] 02/18 [facility] Outpatient Encounter [id number] 02/18 [place] [facility]counter [id number] 02/19 [facility] [place] [facility] Outpatient [facility]counter [id number] 03/15 [facility] [id number] 1.03/26 [facility] OFFICE O/P EST LOW 20 MIN [id number] Diagnos is: ICD-10- CM I10 Essenti al (primar y) hyperte nsion JOSE BAKER 03/26 [place] [facility]counter [id number] 1.04/30 [facility] En[facility] [id number] 1[facility]04/30 [facility] [id number] 05/14 [facility] Outpatient Encounter [id number] [facility] OFF[facility] O/P EST MOD 30 MIN [id number] Diagnos is: ICD-10- CM I10 Essenti al (primar y) hyperte nsion CHRISTIANA FRENCH LY P 06/24 [place] [facility] Outpatient Encounter [id number] [facility] Out[facility] Encounter [id number] 08/17 [facility] Outpatient Encounter [id number] 09/16 [facility] Social History Combined list of available smoking, tobacco, and other social history from Department of Defense and Veterans Affairs facilities. 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 History of tobacco use LIFETIME NON-USER OF TOBACCO 04/07/2006 [facility] History of tobacco use LIFETIME NON-USER OF TOBACCO 08/09/2005 [facility] History of tobacco use LIFETIME NON-USER OF TOBACCO 10/06/2004 [facility] History of tobacco use LIFETIME NON-USER OF TOBACCO 10/09/2003 [facility] History of tobacco use LIFETIME NON-USER OF TOBACCO 10/07/2002 [facility] Plan of Care List of future care activities from Department of Veterans Affairs facilities. Additional future care activities may be listed in the Assessment and Plan section. Date/Time Care Activity Care Activity Detail Facili ty 11/20/2024 AMBULATORY - MEDICINE AM[facility]ULATORY - [facility]IC[facility] Advance Directives List of completed, amended, or rescinded Advance Directives on record at Department of Veterans Affairs facilities. An actual copy of the Directive is not included. Date Advance Directive Provider Source 05/02/2014 ADVANCE DIRECTIVE DISCUSSION STEVEN MAGALLANES [facility]
--- OUTSIDE RECORDS SUMMARY | 2024-10-21 11:45 | XMS_ITS | Encounter Summary ---
Author Name [facility] [place] [facility] Address [address] [place] [address] Care Team Providers Care Respiratory Therapy Aide Name Role Phone BC SPRINGER Primary Care Provider Unavailab SHERRY Oliveira Primary Care Provider Unavailabl e Insurance Providers: [...] Policy Dale's Name Patient's Relationship to Policy Dael MEDICARE (WNR) MEDICARE (M) PART A Mar 12, 2018 PART A [id number] JOSEFA ROBISON III PATIENT Selected Encounter This section includes the information on record at [place] for the Encounter. Date/Time Encounter Type Encounter Description Reason Provider Source Dec 25, 2023 01:46 PM Outpatient Encounter ADMIN DARRICK GRIGSBY ([place]) SHERRY GRULLON Natty Encounter Template Text not used by [place] Plan of Treatment: Future Appointments (+ 6 months) and Future Tests (+/- 45 days) The Plan of Treatment section includes future care activities for the patient from all VA treatmentfacilities. This section includes future appointments and future orders which are active, pending or scheduled. Future Appointments This section includes appointments that were scheduled to occur 6 months from the date of the Encounter, up to a maximum of 20 appointments. The data comes from all [place] treatment facilities. Appointment Date/Time Appointment Type Appointme nt Facility Name Dec 28, 2023 10:00 AM AMBULATORY [facility] SURGERY [facility] Jan 30, 2024 10:00 AM [facility]UL[facility] - MEDICINE [facility] [place] [facility] Mar 26, 2024 09:00 AM AMBULATORY MEDICINE [facility] [place] [facility] Jun 24, 2024 03:30 [facility] Advance Directives: All historical and current Section Date Range: From patient's date of to the date document was created. This section includes ALL of a patient's completed or amended [place] Advance and Rescinded Directives. The entries below indicate that a directive exists for the patient, but an actual copy is not included with this document. The data comes from all [place] facilities. Date Advance Directives Provider Source May 02, 2014 ADVANCE DIRECTIVE DISCUSSION [facility]EN [facility] Encounter Notes: All associated encounter notes This section contains the clinical notes associated to the Encounter. Date/Time Encounter Note(s) Provider Source Dec 25, 2023 01:46 PM ADMINISTRATIVE NOT E: LOCAL TITLE: BENEFICIARY TRAVEL (BT) STANDARD TITLE: ADMINISTRATIVE NOTE DATE OF NOTE: DEC 25, 2023@13:46 ENTRY DATE: DEC 25, 2023@13:46:52 AUTHOR: IVETH VALDIVIA EXP COSIGNER: URGENCY: STATUS: COMPLETED BENEFICIARY TRAVEL COMMON CARRIER: This request is subject to Beneficiary Travel eligibility requirements and administrative approval. * can safely be transported or transfer in and out of a private vehicle, taxi, bus or other common carrier (public transportation). *Or does not need to be on a stretcher during transport. *Or [place] does not require restraints during transport. *Or does not require direct supervision during transport. *Or does not require acute medical care during transport. [place] indicates they have no access to a privately owned vehicle. Comment: NO ACCESS TO PRIVATELY OWNED VEHICLE Suggested medically appropriate forms of transportation: Taxi/Hired Car Type of care being provided: Outpatient appointment Date travel is to commence: Dec youth support worker time (if needed): Estimated time frame will require transportation: 2 Years From: 's Residence: [address] [place] [address] [phone] [place] [phone] To: (Facility Name): [facility] City/State: [facility] Does the have a certified optician or need the assistance of an attendant? No Does the [place] travel with a service animal? Heather /es/ KELTON SMITH NURSES HOTEL RESERVATION AGENT Signed: 12/25/2023 13:50 IVETH VALDIVIA
--- OUTSIDE RECORDS SUMMARY | 2024-10-21 11:45 | XMS_ITS | Encounter Summary ---
Author Name [facility] [place] [facility] [place] Address [address] [place] [address] Care Team Providers Care Driver License Technician Name Role Phone BC SPRINGER Primary Care [...] PART A Mar 12, 2018 PART A [id number] JOSEFA ROBISON III PATIENT Selected Encounter This section includes the information on record at [place] for the Encounter. Date/Time Encounter Type Encounter Description Reason Provider Source Mar 26, 2024 09:00 AM OFFICE O/P EST LOW 20 MIN PRIMARY CARE/MEDICINE ICD-10-CM I10 Essential (primary) hypertension KATHYA BAKER Encounter Template Text not used by [facility] Assessments - Encounter Diagnoses This section includes the primary and secondary diagnoses documented for the Encounter. Date/Time Primary/Secondary Diagnosis Diagnosis Name Provider Source Mar 26, 2024 09:15 AM PRIMARY Essential (primary) hypertension KATHYA BAKER [place] Plan of Treatment: Future Appointments (+ 6 months) and Future Tests (+/- 45 days) The Plan of Treatment section includes future care activities for the patient from all [place] treatmentfacilities. This section includes future appointments and future orders which are active, pending or scheduled. Future Appointments This section includes appointments that were scheduled to occur 6 months from the date of the Encounter, up to a maximum of 20 appointments. The data comes from all [place] treatment facilities. Appointment Date/Time Appointment Type Appointme nt Facility Name Jun 24, 2024 03:30 PM AMBULATORY - MEDICINE [facility] Jul 09, 2024 03:30 PM AMBULATORY - NONE [facility] Lab Results: +/- 30 days of the encounter This section includes the Chemistry and Hematology Lab Results on record with [place] for the patient. Radiology Reports and Pathology Reports are provided separately, in subsequent sections. Lab Results This section contains the Chemistry/Hematology Results that were resulted 30 days before or 30 daysafter the date of the Encounter. Date/Time Source Result Type Result - Unit Interpretation Reference Range Specimen Type Comment Mar 26, 2024 09:04 AM [facility] HEPATITIS C ANTIBODY (HCV)-ARC SERUM Specimen Type: SERUM Comment: Hep C Ab: No HCV antibody detected. If recent infection is suspected or other evidence suggests HCV infection, consider HCV nucleic acid testing Ordering Provider: KATHYA BAKER Report Released Date/Time: Jan 30, 2024 11:10 AM Reporting Lab: [facility] [address] [facility] [address] Performing Lab: [facility] [address] [facility] [address] HEPATITIS C ANTIBODY NON-REACTIVE NON-RE ACTIVE Mar 26, 2024 09:03 AM [facility] HEPATITIS B SURFACE ANTIGEN (HBsAg)-WH SERUM Specimen Type: SERUM Comment: Hep B Surf Ag: Negative for HBsAg. Other markers of Hepatitis B virus are needed to ascertain Hepatitis B infection status. A Reactive result ( Positive prior to 03/25/13) is diagnostic of acute or chronic hepatitis B infection. The presence of Hepatitis B surface antigen is frequently associated with infectivity. Ordering Provider: KATHYA BAKER Report Released Date/Time: Jan 30, 2024 11:10 AM Reporting Lab: [address] [address] Performing Lab: [address] [address] HBsAg Non Reactive Non Reactive Mar 26, 2024 09:03 AM [facility] HEPATITIS B SURFACE ANTIBODY (HBsAb)-WH SERUM Specimen Type: SERUM Comment: If Glucose = >500 and Ketones are positive, please alert the Physician. Ordering Provider: KATHYA BAKER Report Released Date/Time: Jan 30, 2024 11:10 AM Reporting Lab: [address] [address] Performing Lab: [facility] Mar 26, 2024 09:03 AM [facility] URINALYSIS URINE Specimen Type: URINE Comment: If Glucose = >500 and Ketones are positive, please alert the Physician. Ordering Provider: KATHYA BAKER Report Released Date/Time: Jan 30, 2024 11:10 AM Reporting Lab: [address] [address] Performing Lab: [address] [address] UA COLOR Light-Yellow Yellow UA APPEARANCE Turbid Clear UA GLUCOSE Normal mg/dL Negative UA KETONES NEGATIVE mg/dL Negative UA BLOOD NEGATIVE mg/dL Negative UA PROTEIN NEGATIVE mg/dL Negative UA NITRITE NEGATIVE mg/dL Negative UA BILIRUBIN NEGATIVE mg/dL Negative UA SPECIFIC GRAVITY 1.015 L 1.016-1.022 UA pH 6.5 5.0-9.0 UA UROBILINOGEN Normal mg/dL <2.0 UA LEUKOCYTE LARGE Negative Mar 26, 2024 09:03 AM [facility] HEMOGLOBIN A1C PANEL BLOOD Specimen Type: BLO OD Comment: Values obtained from A1C measurements can vary. For atypical A1C assays, a reported value of 7.0 could actually be between 6.72 and 7.28 if measured by a reference method. A reported value of 9.0 could actually be between 8.73 and 9.27. Ref: http://www.ngsp.org/CAPdata.asp Ordering Provider: KATHYA BAKER Report Released Date/Time: Jan 30, 2024 11:10 AM Reporting Lab: [facility] [address] [facility] [address] Performing Lab: [address] [address] HEMOGLOBIN A1C 5.7 H 4.0-5.6 Mar 26, 2024 09:03 AM [facility] CBC AND DIFF (AUTO) BLOOD Specimen Type: BLOO D No comment entered. Ordering Provider: KATHYA BAKER Report Released Date/Time: Jan 30, 2024 11:10 AM Reporting Lab: [facility] [address] [facility] [address] Performing Lab: [address] [address] WBC 9.84 10*3/uL 4.50-11.00 RBC 4.93 10*6/uL 4.23-5.66 HGB 15.1 g/dL 12.8-17 HCT 43.9 39.2-50.4 MCV 89.0 fL 82-99 MCHC 34.4 g/dL 30.8-35.1 PLT 230 10*3/uL 140-360 RDW-CV 12.2 12.0-16.0 MONO, ABS 0.70 10*3/uL 0.30-1.10 MCH 30.6 pg 26.2-32.6 NEUT % 39.0 L 43.7-75.8 LYMPH % 48.9 H 14.0-42.3 MONO % 7.1 5.1-13.7 EOS % 3.8 0.4-6.8 BASO % 0.7 0.1-2.0 NEUT, ABS 3.84 10*3/uL 2.20-7.60 LYMPH, ABS 4.81 10*3/uL H 1.00-3.20 EOS, ABS 0.37 10*3/uL 0.03-0.44 BASO, ABS 0.07 10*3/uL 0.01-0.13 IMMATURE GRAN % 0.5 0.0-0.7 IMMATURE GRAN, ABS 0.05 10*3/uL 0.00-0.0 6 NRBC % 0.0 0.0-0.0 NRBC, ABS 0.00 10*3/uL 0.00-0.00 Mar 26, 2024 09:03 AM [facility] URIC ACID SERUM Specimen Type: SERUM No comment entered. Ordering Provider: KATHYA BAKER Report Released Date/Time: Jan 30, 2024 11:10 AM Reporting Lab: [address] [address] Performing Lab: [address] [address] URIC ACID 8.4 mg/dL H 3.5-7.2 Mar 26, 2024 09:03 AM [facility] LIPID PANEL FASTING SERUM Specimen Type: SERU M No comment entered. Ordering Provider: KATHYA BAKER Report Released Date/Time: Jan 30, 2024 11:10 AM Reporting Lab: [address] [address] Performing Lab: [address] [address] CHOLESTEROL 113 mg/dL TRIGLYCERIDE 91 mg/dL 0-150 LDL calculated 57 mg/dL 0-129 CHOL/HDL 3.0 HDL CHOLESTEROL 38 mg/dL L 40-60 Mar 26, 2024 09:03 AM [facility] LIVER FUNCTION SERUM Specimen Type: SERUM No comment entered. Ordering Provider: KATHYA BAKER Report Released Date/Time: Jan 30, 2024 11:10 AM Reporting Lab: [address] [address] Performing Lab: [address] [address] PROTEIN,TOTAL 6.7 g/dL 6.0-8.3 ALBUMIN 3.7 g/dL 3.5-5.0 ALKALINE PHOSPHATASE 82 U/L 40-150 AST 21 U/L 5-34 ALT 21 U/L BILIRUBIN, TOTAL 0.7 mg/dL 0.2-1.2 Mar 26, 2024 09:03 AM [facility] BASIC METABOLIC PANEL (fasting) SERUM Specime n Type: SERUM No comment entered. Ordering Provider: KATHYA BAKER Report Released Date/Time: Jan 30, 2024 11:10 AM Reporting Lab: [address] [address] Performing Lab: [address] [address] UREA NITROGEN 15 mg/dL 7-25 GLUCOSE 93 mg/dL 65-100 SODIUM 141 mmol/L 135-145 POTASSIUM 3.5 mmol/L 3.5-5.0 CHLORIDE 103 mmol/L 100-110 CO2 27 meq/L 20-30 CREATININE, Serum 0.83 mg/dL 0.50-1.40 eGFR(CKD-EPI 2020) >90 mL/min >60 Mar 26, 2024 09:03 AM [facility] TSH SERUM Specimen Type: SERUM No comment entered. Ordering Provider: KATHYA BAKER Report Released Date/Time: Jan 30, 2024 11:10 AM Reporting Lab: [address] [address] Performing Lab: [address] [address] TSH 2.15 u[IU]/mL 0.35-5.00 Mar 26, 2024 09:03 AM [facility] HIV 1&2 Ag/Ab SCREEN SERUM Specimen Type: SER UM No comment entered. Ordering Provider: KATHYA BAKER Report Released Date/Time: Jan 30, 2024 11:10 AM Reporting Lab: [address] [address] Performing Lab: [address] [address] HIV 1&2 Ag/Ab SCREEN NON-REACTIVE Nonrea ctive Mar 26, 2024 09:03 AM [facility] MICROSCOPIC AUTOMATED, URINE URINE Specimen T ype: URINE Comment: If Glucose = >500 and Ketones are positive, please alert the Physician. Ordering Provider: KATHYA BAKER Report Released Date/Time: Jan 30, 2024 11:10 AM Reporting Lab: [facility] [address] [facility] [address] Performing Lab: [facility] [address] [facility] [address] UA WBC 21-50 /[HPF] H 0-5 UA BACTERIA 1+ /[HPF] NoneObs UA MUCUS FEW /[LPF] Trace UA RBC 3-5 /[HPF] 0-3 Social History: Smoking Status (Most current) and Tobacco Use (All prior to encounter date) This section includes the most current, and the historical, smoking and tobacco- related health factors from the [place] facility where the Encounter took place. Current Smoking Status This section includes the most current smoking, or tobacco-related health factor, from the [place] facility where the Encounter took place. Date/Time Current Smoking Status Comment Myranda reney Jan 30, 2024 10:00 AM [place]-TOBACCO NEVER USED [place] Advance Directives: All historical and current Section Date Range: From patient's date of to the date document was created. This section includes ALL of a patient's completed or amended [place] Advance and Rescinded Directives. The entries below indicate that a directive exists for the patient, but an actual copy is not included with this document. The data comes from all [place] facilities. Date Advance Directives Provider Source May 02, 2014 ADVANCE DIRECTIVE DISCUSSION STEVEN MAGALLANES [facility] Encounter Notes: All associated encounter notes This section contains the clinical notes associated to the Encounter. Date/Time Encounter Note(s) Provider Source Apr 08, 2024 10:12 AM ADMINISTRATIVE NOT E: LOCAL TITLE: ADMINISTRATIVE NOTE STANDARD TITLE: ADMINISTRATIVE NOTE DATE OF NOTE: APR 08, 2024@10:12 ENTRY DATE: APR 08, 2024@10:12:39 AUTHOR: MICHELINE HUDSON COSIGNER: URGENCY: STATUS: COMPLETED ADMINISTRATIVE NOTE Has ADDENDA Per the [place]'s request via the patient advocate, please reassign to [facility] PACT 9 and establish an appointment within the next 30-60 days. Thank you. /lianet/ MICHELINE HUDSON NP NURSE PRACTITIONER Signed: 04/08/2024 10:13 Receipt Acknowledged By: 04/08/2024 10:22 /lianet/ AAMIR SCHROEDER 04/08/2024 ADDENDUM STATUS: COMPLETED Vacuum Spindle Sander spoke w/ & scheduled f2f appt w/new [facility] on 05/13/24 @ 01:00 pm. /lianet/ AAMIR SCHROEDER Signed: 04/08/2024 10:22 MICHELINE HUDSON Mar 26, 2024 09:11 AM PREVENTIVE MEDICIN E NURSING NOTE: LOCAL TITLE: CLINICAL REMINDERS/NURSING STANDARD TITLE: PREVENTIVE MEDICINE NURSING NOTE DATE OF NOTE: MAR 26, 2024@09:11 ENTRY DATE: MAR 26, 2024@09:11:28 AUTHOR: VIRGINIA LAI EXP COSIGNER: URGENCY: STATUS: COMPLETED Pneumococcal Conjugate Vaccine (PCV15/PCV20): Refuses PCV vaccine Immunization: PNEUMOCOCCAL CONJUGATE, UNSPECIFIED FORMULATION Refusal Reason: PATIENT DECISION Patient refuses all immunization(s) in the PneumoPCV group Date Documented: 03/26/24 09:11 Influenza Immunization: Deferral / Refusal The patient declines to receive the recommended dose of seasonal influenza vaccine. Immunization: INFLUENZA, UNSPECIFIED FORMULATION Refusal Reason: PATIENT DECISION Patient refuses all immunization(s) in the FLU group Date Documented: 03/26/24 09:12 COVID-19 Immunization: Refused Moderna Monovalent COVID-19 vaccine Immunization: COVID-19 (MODERNA), MRNA, LNP-S, PF, 50 MCG/0.5 ML (AGES 12+ YEARS) Refusal Reason: PATIENT DECISION Patient refuses all immunization(s) in the COVID-19 group Date Documented: 03/26/24 09:12 Tdap Immunization: The patient declines to receive the recommended dose of Tdap vaccine. Immunization: TDAP Refusal Reason: PATIENT DECISION Patient refuses all immunization(s) in the TDAP group Date Documented: 03/26/24 09:12 Herpes Zoster (Shingles) Vaccine: The patient declines to receive the recommended dose of zoster (shingles) vaccine. Immunization: ZOSTER RECOMBINANT Refusal Reason: PATIENT DECISION Patient refuses all immunization(s) in the ZOSTER group Date Documented: 03/26/24 09:12 /es/ VIRGINIA LAI LPN PACT 10 Signed: 03/26/2024 09:13 VIRGINIA LAI [place] Mar 26, 2024 05:53 AM PHYSICIAN NOTE: LOCAL TITLE: MD NOTE STANDARD TITLE: PHYSICIAN NOTE DATE OF NOTE: MAR 26, 2024@05:53 ENTRY DATE: MAR 26, 2024@05:53:39 AUTHOR: KATHYA BAKER EXP COSIGNER: URGENCY: STATUS: COMPLETED HISTORY OF PRESENT ILLNESS: JOSEFA NIKKO ROBISON is a 68 yo MALE who presents at the [facility] for his annual wellness exam. No labs completed. He went to lab during his OV and returned when his visit was nearly over. He recently established /[facility] primary care 01/30/24. He tells me he went to the ER approx 5 weeks ago and had questions about it but was unable to address as the records are not available at this writing. Will request records to review. Active problems - Computerized Problem List is the source for the followin. Hypokalemia 2. Sensorineural hearing loss 3. Benign prostatic hypertrophy 4. Anxiety disorder 5. Chronic low back pain 6. Crystal arthropathy 7. Prediabetes 8. Colonoscopy 9. Primary adenocarcinoma of colon 10. Obesity 11. Hypertension 12. 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 Erectile dysfunction 15. Hyperlipidemia The following VA and Non-VA meds were reconciled with patient: Active Outpatient Medications (including Supplies): Start Date Active Non-VA Medications Refills Expiration ======= 1) Non-VA ATENOLOL 50/CHLORTHALIDONE 25MG ACTIVE TAB Si TABLET BY MOUTH ONCE DAILY 2) Non-VA ATORVASTATIN CALCIUM 80MG TAB ACTIVE SiMG BY MOUTH ONCE DAILY 3) Non-VA GABAPENTIN 100MG CAP SiMG ACTIVE BY MOUTH TWICE DAILY 4) Non-VA OMEPRAZOLE 20MG EC CAP SiMG ACTIVE BY MOUTH TWICE DAILY 5) Non-VA POTASSIUM CHLORIDE 10MEQ SA TAB ACTIVE SiMEQ BY MOUTH TWICE DAILY 6) Non-VA SELENIUM SULFIDE 2.5% ACTIVE LOTION/SHAMPOO Sig: DIRECTED TOPICALLY ONCE DAILY 7) Non-VA SERTRALINE HCL 100MG TAB Sig: ACTIVE 50MG BY MOUTH ONCE DAILY ALLERGIES: ========= LISINOPRIL HISTORY: PERIOD OF SERVICE - [employer] FROM May TO May COMBAT SERVICE INDICATED: No VITAL SIGNS: Blood Pressure 125/74 (03/26/2024 09:10) Pulse 69 (03/26/2024 09:10) Respiration 18 (03/26/2024 09:10) Pulse Oximetry 97% (03/26/2024 09:10) Temperature 98.1 F [36.7 C] (03/26/2024 09:10) Pain 0 (03/26/2024 09:10) Height 70 in [177.8 cm] (03/26/2024 09:10) Weight 253.6 lb [115.03 kg] (03/26/2024 09:10) BMI BMI: 36.5 REVIEW OF SYSTEMS: CARDIOVASCULAR: No chest pain RESPIRATORY: No SOB, no wheezing GASTROINTESTINAL: No abd pain MUSCULOSKELETAL: No joint pain PSYCHIATRIC: + anxiety EXAMINATION: GENERAL: WD/WN , pleasant & in NAD HEENT: Moist mucosa NECK: Supple HEART: RRR, S1-S2, no murmurs LUNGS: CTA B/L EXTREMITIES: FROM x 4 ASSESSMENT/PLAN: 1. Adenocarcinoma of Colon: right colon, dxed 10/2021, was advised a right daphney- colectomy to remove both the site and surrounding LN's to fully stage the tumor and be certain there is no spread, pt has declined treatment to date and has opted for surveillance he is aware that delaying treatment places him at high risk for metastatic colon CA and , he tells me he was told he needs to have another colonoscopy after the first of the year, will place consult now (he states he does not plan to return to [facility] for his care) 11/02/23 CT Chest, Abdomen, and Pelvis w/IV cont: no evidence of recurrent or metastatic disease (ordered by Dr Sherry Hurst) 2. Hypertension: well controlled on atenolol 50mg/day and chlorthalidone 25mg/day 3. Hyperlipidemia: on atorvastatin 40mg/QHS, need labs 4. Prediabetes: need labs 5. Hypokalemia: on KCL 20meq BID, need K+ level 6. GERD: has hx of Bravo's (last EGD 2020 was neg), on omeprazole 20mg BID 7. BPH w/LUTS: no longer on tamsulosin 0.4mg/day 8. Chronic Low Back Pain: on gabapentin 100mg BID 9. Erectile Dysfunction: on alprostadil inj as directed 10. Anxiety Disorder: with frequent somatic sxs, on sertraline 50mg/day 11. 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 Obesity: BMI ~37, counseled on wt loss 13. Edema B/L LE's: advised to wear his compression stockings daily and minimize salt in diet FOLLOW UP: 3-4 weeks - AWE, discuss labs, review [place] [facility] [place] UPCOMING APPOINTMENTS: 05/21/2024 09:00 COM CARE-COLO SCRN No barriers; Patient understands and agrees to current treatment plan. If pt has any questions, concerns, or changes in current health status he/she will call or come in to the VA. Medication Reconciliation: Outpatient: Has the patient been taking medications as documented in the EMLR? YES: The patient has been taking medications as documented in the EMLR. Essential Medication List for Review used to complete this medication reconciliation. INCLUDED IN THIS LIST: Alphabetical list of active outpatient prescriptions dispensed from this VA (local) and dispensed from another [place] or [place] facility (remote) as well as inpatient orders (local, pending and active), local clinic medications, locally documented non-VA medications, and local prescriptions that have or been discontinued in the past 90 days. - All changes in medications, including all non-VA/Herbal/OTC medications were entered into CPRS. - If there were any medications the patient should no longer take, they were discontinued. - The patient/caregiver was instructed to update this list, discard old lists, and take this list to the next appointment, whether with a VA or non-VA provider. JLV Link Data on this list may not be complete. Please check JLV. Allergies/ADRs (Tool #5) FACILITY ALLERGY/ADR -------- [facility] LISINOPRIL [facility] PENICILLIN [facility] LISINOPRIL [facility]ILL[facility] LISINOPRIL [facility]INOP[facility]IL [facility] PENICILLIN [facility] SULFAMETHOXAZOLE/TRIMETHOPRIM Med Recon NoGlossary (Tool #1) INCLUDED IN THIS LIST: Alphabetical list of active outpatient prescriptions dispensed from this [place] (local) and dispensed from another [place] or [facility] facility (remote) as well as inpatient orders (local pending and active), local clinic medications, locally documented non-VA medications, and local prescriptions that have or been discontinued in the past 90 days. Non-VA Meds Last Documented On: Jan 30, 2024 NOTE The display of VA prescriptions dispensed from another [place] or [place] facility (remote) is limited to active outpatient prescription entries matched to National Drug File at the originating site and may not include some items such as investigational drugs, compounds, etc. NOT INCLUDED IN THIS LIST: Medications self-entered by the patient into personal health records (i.e. [employer]) are NOT included in this list. Non-VA medications documented outside this [place], remote inpatient orders (regardless of status) and remote clinic medications are NOT included in this list. The patient and provider must always discuss medications the patient is taking, regardless of where the medication was dispensed or obtained. ------ Non-VA ATENOLOL 50/CHLORTHALIDONE 25MG TAB TAKE ONE TABLET BY MOUTH ONCE DAILY Patient wants to buy from Non-[place] pharmacy. Medication prescribed by Non-[place] provider. Remote ATENOLOL 50MG/CHLORTHALIDONE 25MG TAB TAKE ONE TABLET BY MOUTH ONCE DAILY FOR HIGH BLODD PRESSURE Last Filled: 03/19/24 (Active at [facility]) Rx Expiration Date: 06/21/24 Days Supply: 90 Remote ATORVASTATIN CA 80MG TAB TAKE ONE-HALF TABLET BY MOUTH EVERY EVENING (FOR CHOLESTEROL) Last Filled: 02/14/24 (Active at [facility]) Rx Expiration Date: 10/05/24 Days Supply: 90 Non-VA ATORVASTATIN CALCIUM 80MG TAB TAKE ONE-HALF TABLET BY MOUTH ONCE DAILY Patient wants to buy from Non-[place] pharmacy. Medication prescribed by Non-[place] provider. Remote CLOTRIMAZOLE 1% SOLN,TOP APPLY SMALL AMOUNT TO AFFECTED AREA TWICE A DAY FOR FUNGAL INFECTION OF THE SKIN Last Filled: 01/01/24 (Active at [facility]) Rx Expiration Date: 12/28/24 Days Supply: 30 Remote COLCHICINE 0.6MG TAB TAKE ONE TABLET BY MOUTH ONCE DAILY FOR ACUTE INFLAMMATION FROM GOUT ATTACK Last Filled: 10/10/23 (Active at [facility]) Rx Expiration Date: 10/06/24 Days Supply: 30 Non-VA GABAPENTIN 100MG CAP TAKE 1 CAPSULE BY MOUTH TWICE DAILY Patient wants to buy from Non-[place] pharmacy. Medication prescribed by Non-[place] provider. Remote GABAPENTIN 100MG CAP TAKE ONE CAPSULE BY MOUTH EVERY MORNING AND TAKE ONE CAPSULE EVERY EVENING AND TAKE THREE CAPSULES AT BEDTIME Last Filled: 12/13/23 (Active at [facility]) Rx Expiration Date: 10/05/24 Days Supply: 90 Remote MICONAZOLE NITRATE 2% (SABI) CREAM,TOP APPLY SMALL AMOUNT TO AFFECTED AREA TWICE A DAY FOR FUNGAL INFECTION Last Filled: 08/03/23 (Active at [facility]) Rx Expiration Date: 08/02/24 Days Supply: 30 Non-VA OMEPRAZOLE 20MG EC CAP TAKE 2 CAPSULES BY MOUTH TWICE DAILY Patient wants to buy from Non-[place] pharmacy. Medication prescribed by Non-[place] provider. Non-VA POTASSIUM CHLORIDE 10MEQ SA TAB TAKE TWO TABLETS BY MOUTH TWICE DAILY Patient wants to buy from Non-[place] pharmacy. Medication prescribed by Non-[place] provider. Remote POTASSIUM CHLORIDE 10MEQ TAB,SA TAKE TWO TABLETS BY MOUTH TWICE A DAY (POTASSIUM SUPPLEMENT) Last Filled: 12/08/23 (Active at [facility]) Rx Expiration Date: 10/05/24 Days Supply: 90 Non-[place] SELENIUM SULFIDE 2.5% LOTION/SHAMPOO APPLY DIRECTED TOPICALLY ONCE DAILY Patient wants to buy from Non-[place] pharmacy. Medication prescribed by Non-[place] provider. Remote SERTRALINE HCL 100MG TAB TAKE ONE-HALF TABLET BY MOUTH ONCE DAILY FOR ANXIETY Last Filled: 03/27/24 (Active at [facility]) Rx Expiration Date: 10/05/24 Days Supply: 90 Non-[place] SERTRALINE HCL 100MG TAB TAKE ONE-HALF TABLET BY MOUTH ONCE DAILY Patient wants to buy from Non-[place] pharmacy. Medication prescribed by Non-[place] provider. ------ SUPPLIES ------ HIV Screening: Patient has given verbal consent for HIV antibody testing, and the risks, benefits, and alternatives to HIV testing have been discussed. An order for an HIV Antibody test has been entered - see orders tab. Lipid Screening: Lipid profile ordered at this encounter. Hepatitis C Testing: Patient has given verbal consent for HCV antibody testing. An HCV lab test has been ordered - see orders tab. Avg Risk Colorectal Cancer Screen: AVERAGE RISK colorectal cancer screening is due based on information available to this clinical reminder Patient has arranged or is choosing to arrange this care independent of and without assistance from this VA. /es/ KATHYA BAKER MD Primary Care Physician Signed: 03/26/2024 09:43 KATHYA BAKER
--- OUTSIDE RECORDS SUMMARY | 2024-10-21 11:45 | XMS_ITS | Encounter Summary ---
Author Name [facility] [place] Organization [facility] [facility] [place] Address [address] [place] [address] Care Team Providers Care Gate Services Supervisor Name Role Phone BC SPRINGER Primary Care [...] PART A Mar 12, 2018 PART A [id number] JOSEFA ROBISON III PATIENT Selected Encounter This section includes the information on record at [place] for the Encounter. 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 Date/Time Primary/Secondary Diagnosis Diagnosis Name Provider Source Jan 30, 2024 11:20 AM PRIMARY Carcinoma in situ of colon KATHYA BAKER [place] Jan 30, 2024 11:20 AM SECONDARY Essential (primary) hypertension KATHYA BAKER [place] Jan 30, 2024 11:20 AM SECONDARY Hyperlipidemia, unspecified KATHYA BAKER [place] Jan 30, 2024 11:20 AM SECONDARY Hypokalemia KAHTYA BAKER [place] Jan 30, 2024 11:20 AM SECONDARY Obesity, unspecified KATHYA BAKERE [place] Plan of Treatment: Future Appointments (+ 6 months) and Future Tests (+/- 45 days) The Plan of Treatment section includes future care activities for the patient [facility] [place] [facility] This section includes future appointments and future orders which are active, pending or scheduled. Future Appointments This section includes appointments that were scheduled to occur 6 months from the date of the Encounter, up to a maximum of 20 appointments. The data comes from all [place] treatment facilities. Appointment Date/Time Appointment Type Appointme nt Facility Name Mar 26, 2024 09:00 AM AMBULATORY - MEDICINE [facility] Jun 24, 2024 03:30 PM AMBULATORY - MEDICINE [facility] [place] [facility] Jul 09, 2024 03:30 PM [facility] Social History: Smoking Status (Most current) and Tobacco Use (All prior to encounter date) This section includes the most current, and the historical, smoking and tobacco- related health factors from the [place] facility where the Encounter took place. Current Smoking Status This section includes the most current smoking, or tobacco-related health factor, from the [place] facility where the Encounter took place. Date/Time Current Smoking Status Comment Myranda dalton Jan 30, 2024 10:00 AM [place]-TOBACCO NEVER USED [place] Advance Directives: All historical and current Section Date Range: From patient's date of to the date document was created. This section includes ALL of a patient's completed or amended [place] Advance and Rescinded Directives. The entries below indicate that a directive exists for the patient, but an actual copy is not included with this document. The data comes from all [place] facilities. Date Advance Directives Provider Source May 02, 2014 ADVANCE DIRECTIVE DISCUSSION STEVEN MAGALLANES [facility] Encounter Notes: All associated encounter notes This section contains the clinical notes associated to the Encounter. Date/Time Encounter Note(s) Provider Source Jan 30, 2024 10:24 AM PREVENTIVE MEDICIN E NURSING NOTE: LOCAL TITLE: CLINICAL REMINDERS/NURSING STANDARD TITLE: PREVENTIVE MEDICINE NURSING NOTE DATE OF NOTE: JAN 30, 2024@10:24 ENTRY DATE: JAN 30, 2024@10:24:09 AUTHOR: VIRGINIA LAI COSIGNER: URGENCY: STATUS: COMPLETED Tobacco Pack Year History: Patient declines/unable to give complete smoking history. Advance Directive Screen MH AD: Patient does not have a completed advance directive on file at any facility, VA or outside. S/he is not interested in completing one at this time. The patient received education about Advance Directives and written notification of his/her rights. Suicide Screen: C-SSRS Screening [place] Suicide Severity Rating Scale (C-SSRS) screener 1. Over the past month, have you wished you were or wished you could go to sleep and not wake up? No 2. Over the past month, have you had any actual thoughts of killing yourself? No 3. Over the past month, have you been thinking about how you might do this? Response not required due to responses to other questions. 4. Over the past month, have you had these thoughts and had some intention of acting on them? Response not required due to responses to other questions. 5. Over the past month, have you started to work out or worked out the details of how to kill yourself? Response not required due to responses to other questions. 6. If yes, at any time in the past month did you intend to carry out this plan? Response not required due to responses to other questions. 7. In your lifetime, have you ever done anything, started to do anything, or prepared to do anything to end your life (for example, collected pills, obtained a gun, gave away valuables, went to the roof but didn't jump)? No 8. If YES, was this within the past 3 months? Response not required due to responses to other questions. Toxic Exposure Screening: The /caregiver was asked if they believe the [place] experienced any toxic exposure(s), such as Airborne Hazards and Open Burn Pit, [place] War related exposures, Agent Juab, Radiation, contaminated water at [place] or other such exposures, while serving in the Armed Forces. [place] has no concerns about toxic exposure(s) while serving in the Armed Forces. The [place]/caregiver was informed that we will continue to ask this screening question every 5 years. They can contact their provider/healthcare team if they have concerns about exposures and would like to be screened sooner. Printed information was offered and provided if desired. Homelessness/Food Insecurity Screen: In the past 2 months, have you been living in stable housing that you own, rent, or stay in as part of a household? Yes - Living in stable housing. Are you worried or concerned that in the next 2 months you may NOT have stable housing that you own, rent, or stay in as part of a household? No - Not worried about housing near future The reports the following: Within the past 12 months, you worried whether your food would run out before you got money to buy more. Never true Within the past 12 months, the food you bought just didn't last and you didn't have money to get more. Never true Avg Risk Colorectal Cancer Screen: AVERAGE RISK colorectal cancer screening is due based on information available to this clinical reminder Defer reminder for 3 months Reason: Vet has colon cancer Depression Screening: Perform PHQ-2 A PHQ-2 screen was performed. The score was 0 which is a negative screen for depression. Over the past two weeks, how often have you been bothered by the following problems? 1. Little interest or pleasure in doing things Not at all 2. Feeling down, depressed, or hopeless Not at all Pneumococcal Conjugate Vaccine (PCV15/PCV20): Refuses PCV vaccine Immunization: PNEUMOCOCCAL CONJUGATE, UNSPECIFIED FORMULATION Refusal Reason: PATIENT DECISION Patient refuses all immunization(s) in the PneumoPCV group Date Documented: 01/30/24 10:25 Preferred Language: What is your, or your caregiver's preferred language for healthcare? Preferred Language: [place] Islander PTSD Screening: PC-PTSD-5 A PTSD screening test (PC-PTSD-5) was negative (score=0). IN THE PAST MONTH, have you ever had any experience that was so frightening, horrible or traumatic. For example: A serious accident or fire a physical or sexual assault or abuse An earthquake or flood A war Seeing someone be killed or seriously injured Having a loved one through homicide or suicide 1. Have you ever experienced this kind of event? NO 2. Had nightmares about the event(s) or thought about the event(s) when you did not want to? Response not required due to responses to other questions. 3. Tried hard not to think about the event(s) or went out of your way to avoid situations that reminded you of the event(s)? Response not required due to responses to other questions. 4. Been constantly on guard, watchful, or easily startled? Response not required due to responses to other questions. 5. Leland numb or detached from people, activities, or your surroundings? Response not required due to responses to other questions. 6. Leland guilty or unable to stop blaming yourself or others for the event(s) or any problems the event(s) may have caused? Response not required due to responses to other questions. Tobacco Use Screening: The patient has never used tobacco. Influenza Immunization: No influenza vaccination was received during the recent influenza season. Alcohol Use Screen (AUDIT-C): Alcohol Screen: SCREEN FOR ALCOHOL (AUDIT-C) An alcohol screening test (AUDIT-C) was negative (score=0). 1. How often did you have a drink containing alcohol in the past year? Consider a drink to be a 12 ounce can or bottle of regular beer, 8 ounces of malt liquor, a 5 ounce glass of table wine, or a 1.5 ounce shot of liquor (like scotch, gin, or vodka). Never 2. How many drinks containing alcohol did you have on a typical day when you were drinking in the past year? Response not required due to responses to other questions. 3. How often did you have six or more drinks on one occasion in the past year? Response not required due to responses to other questions. COVID-19 Immunization: Referred to another clinic for immunization (desired vaccine unavailable at this location) Tdap Immunization: The patient declines to receive the recommended dose of Tdap vaccine. Immunization: TDAP Refusal Reason: PATIENT DECISION Patient refuses all immunization(s) in the TDAP group Date Documented: 01/30/24 10:27 Herpes Zoster (Shingles) Vaccine: The patient declines to receive the recommended dose of zoster (shingles) vaccine. Immunization: ZOSTER RECOMBINANT Refusal Reason: PATIENT DECISION Patient refuses all immunization(s) in the ZOSTER group Date Documented: 01/30/24 10:28 RHS Screen: RHS Screen Session Format: Face to Face Environmental Check Upon inquiry, the individual reports that the environment is safe to proceed. Informed Consent to Screen and Document The individual consents to proceed with screening. The individual consents to documentation of responses. PRIMARY SCREEN: In the past 12 months, how often did a current or former intimate partner (e.g., boyfriend, girlfriend, , , sexual partner): 1. Scream or curse at you Never 2. Insult or talk down to you Never 3. Threaten you with harm Never 4. Physically hurt you Never 5. Force or pressure you to have sexual contact against your will, or when you were unable to say no Never ?? The HITS tool (items 1-4 above) is US copyright protected by Narinder Coronel MD, and the user has full rights to use it throughout the [place] system. PRIMARY SCREEN RESULT: The Primary Screen is NEGATIVE. The individual answered never to all forms of IPV above (i.e., answered never to all 5 items) The individual accepts education and/or resources: No EDUCATION: The individual indicated readiness to learn. Education offered during this session as noted above. The individual indicated understanding by asking relevant questions and making appropriate comments. No barriers to learning were observed or identified. /lianet/ VIRGINIA LAI LPN PACT 10 Signed: 01/30/2024 10:28 VIRGINIA LAI [place] Jan 30, 2024 06:26 AM PHYSICIAN NOTE: LOCAL TITLE: NOTE STANDARD TITLE: PHYSICIAN NOTE DATE OF NOTE: JAN 30, 2024@06:26 ENTRY DATE: JAN 30, 2024@06:26:58 AUTHOR: KATHYA BAKER EXP COSIGNER: URGENCY: STATUS: COMPLETED HISTORY OF PRESENT ILLNESS: JOSEFA ROBISON, is a 68 yo MALE , who presents at the [facility] as a new patient visit. He was formerly managed by Dr Sherry Hurst at the [facility] in [place]. Last set of labs drawn 02/23/23. Active problems - Computerized Problem List is the source for the followin. Hypokalemia 2. Sensorineural hearing loss 3. Benign prostatic hypertrophy 4. Anxiety disorder 5. Chronic low back pain 6. Crystal arthropathy 7. Prediabetes 8. Primary adenocarcinoma of colon 9. Obesity 10. Hypertension 11. 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 Erectile dysfunction 14. Hyperlipidemia Active and Recently Outpatient Medications (including Supplies): Active Non-VA Medications Status ======= 1) Non-VA ATENOLOL 50/CHLORTHALIDONE 25MG TAB 1 TABLET ACTIVE BY MOUTH ONCE DAILY 2) Non-VA ATORVASTATIN CALCIUM 80MG TAB 40MG BY MOUTH ACTIVE ONCE DAILY 3) Non-VA GABAPENTIN 100MG CAP 100MG BY MOUTH TWICE ACTIVE DAILY 4) Non-VA OMEPRAZOLE 20MG EC CAP 40MG BY MOUTH TWICE ACTIVE DAILY 5) Non-VA POTASSIUM CHLORIDE 10MEQ SA TAB 20MEQ BY MOUTH ACTIVE TWICE DAILY 6) Non-VA SELENIUM SULFIDE 2.5% LOTION/SHAMPOO ACTIVE DIRECTED TOPICALLY ONCE DAILY 7) Non-VA SERTRALINE HCL 100MG TAB 50MG BY MOUTH ONCE ACTIVE DAILY ALLERGIES: ========= LISINOPRIL, PENICILLIN, CIPROFLOXACIN SURGICAL HISTORY: 1983 - left foot surgery FAMILY HISTORY: Mother: age 87, pneumonia and failure to thrive Father: age 50's, gun shot wound Sister: age 80, obese, DM SOCIAL HISTORY: , never smoked, ETOH rare, no drug use, born and raised in [place], 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, 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, 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, 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 Daughter lives in [facility] Daughter lives in [facility] Son lives in [facility] HISTORY: PERIOD OF SERVICE - [employer] FROM May TO May COMBAT SERVICE INDICATED: No VITAL SIGNS: Blood Pressure 122/54 (01/30/2024 10:12) Pulse 47 (01/30/2024 10:12) Respiration 16 (01/30/2024 10:12) Pulse Oximetry 97% (01/30/2024 10:12) Temperature 98.2 F [36.8 C] (01/30/2024 10:12) Pain 0 (01/30/2024 10:12) Height 69 in [175.3 cm] (01/30/2024 10:12) Weight 260.2 lb [118.02 kg] (01/30/2024 10:12) BMI BMI: 38.5 REVIEW OF SYSTEMS: CARDIOVASCULAR: No chest pain, no palpitations RESPIRATORY: No SOB, no wheezing GASTROINTESTINAL: No abd pain, no N/V/D GENITOURINARY: No dysuria, no hematuria MUSCULOSKELETAL: No joint pain, no joint swelling PSYCHIATRIC: + anxiety, no depression NEUROLOGIC: No H/A, no numbness, no weakness EXAMINATION: GENERAL: WD/WN , pleasant & in NAD HEENT: Moist mucosa NECK: Supple HEART: RRR, S1-S2, no murmurs LUNGS: CTA B/L ABDOMEN: Soft, NT/ND EXTREMITIES: FROM x 4, trace edema B/L LE's, gait normal NEUROLOGIC: AAO x3, no focal findings PSYCHIATRIC: Good eye contact, affect normal ASSESSMENT/PLAN: 1. Adenocarcinoma of Colon: right colon, [...] he does not plan to return to [facility] for his care) 11/02/23 CT Chest, Abdomen, and Pelvis w/IV cont: no evidence of recurrent or metastatic disease (ordered by Dr Sherry Hurst) 2. Hypertension: on atenolol 50mg/day and chlorthalidone 25mg/day, has hx of labile BP values 3. Hyperlipidemia: on atorvastatin 40mg/QHS, need labs 4. Prediabetes: need labs 5. Hypokalemia: on KCL 20meq BID, will check K+ level 6. GERD: has hx of [...] will check uric level 12. Obesity: BMI ~39, counseled on wt loss 13. Edema B/L LE's: advised to wear his compression stockings daily and minimize salt in diet FOLLOW UP: 6-8 weeks - AWE - FBW prior ========= No barriers; Patient understands and agrees to current treatment plan. If pt has any questions, concerns, or changes in current health status he/she will call or come in to the VA. Hepatitis C Testing: Patient has given verbal consent for HCV antibody testing. An HCV lab test has been ordered - see orders tab. HIV Screening: Patient has given verbal consent for HIV antibody testing, and the risks, benefits, and alternatives to HIV testing have been discussed. An order for an HIV Antibody test has been entered - see orders tab. Lipid Screening: Lipid profile ordered at this encounter. Medication Reconciliation: Outpatient: Has the patient been taking medications as documented in the EMLR? YES: The patient has been taking medications as documented in the EMLR. Essential Medication List for Review used to complete this medication reconciliation. INCLUDED IN THIS LIST: Alphabetical list of active outpatient prescriptions dispensed from this VA (local) and dispensed from another VA or DoD facility (remote) as well as [...] JLV. Allergies/ADRs (Tool #5) FACILITY ALLERGY/ADR -------- [facility] LISIN[facility]IL [facility] PENICILLIN [facility] LISINOPRIL [facility] P[facility] [place] PENICILLIN [facility] SULFAMETHOXAZOLE/TRIMETHOPRIM Med Recon NoGlossary (Tool #1) INCLUDED IN THIS LIST: Alphabetical list of active outpatient prescriptions dispensed from this [place] (local) and dispensed from another [place] or [facility] facility (remote) as well as inpatient orders (local pending and active), local clinic medications, locally documented non-VA medications, and local prescriptions that have or been discontinued in the past 90 days. Non-VA Meds Last Documented On: Jan 30, 2024 NOTE The display of VA prescriptions dispensed from another [place] or DoD facility (remote) is limited to active outpatient prescription entries matched to National Drug File at the originating site and may not include some items such as investigational drugs, compounds, etc. NOT INCLUDED IN THIS LIST: Medications self-entered by the patient into personal health records (i.e. [employer]) are NOT included in this list. Non-VA medications documented outside this [place], remote inpatient orders (regardless of status) and remote clinic medications are NOT included in this list. The patient and provider must always discuss medications the patient is taking, regardless of where the medication was dispensed or obtained. ------ Non-VA ATENOLOL 50/CHLORTHALIDONE 25MG TAB TAKE ONE TABLET BY MOUTH ONCE DAILY Patient wants to buy from Non-[place] pharmacy. Medication prescribed by Non-[place] provider. Remote ATENOLOL 50MG/CHLORTHALIDONE 25MG TAB TAKE ONE TABLET BY MOUTH ONCE DAILY FOR HIGH BLODD PRESSURE Last Filled: 12/20/23 (Active at [facility]) Rx Expiration Date: 06/21/24 Days Supply: 90 Remote ATORVASTATIN CA 80MG TAB TAKE ONE-HALF TABLET BY MOUTH EVERY EVENING (FOR CHOLESTEROL) Last Filled: 10/09/23 (Active at [facility]) Rx Expiration Date: 10/05/24 Days Supply: 90 Non-VA ATORVASTATIN CALCIUM 80MG TAB TAKE ONE-HALF TABLET BY MOUTH ONCE DAILY Patient wants to buy from Non-[place] pharmacy. Medication prescribed by Non-[place] provider. Remote CLOTRIMAZOLE 1% SOLN,TOP APPLY SMALL AMOUNT TO AFFECTED AREA TWICE A DAY FOR FUNGAL INFECTION OF THE SKIN Last Filled: 01/01/24 (Active at [facility]) Rx Expiration Date: 12/28/24 Days Supply: 30 Remote COLCHICINE 0.6MG TAB TAKE ONE TABLET BY MOUTH ONCE DAILY FOR ACUTE INFLAMMATION FROM GOUT ATTACK Last Filled: 10/10/23 (Active at [facility]) Rx Expiration Date: 10/06/24 Days Supply: 30 Non-VA GABAPENTIN 100MG CAP TAKE 1 CAPSULE BY MOUTH TWICE DAILY Patient wants to buy from Non-[place] pharmacy. Medication prescribed by Non-[place] provider. Remote GABAPENTIN 100MG CAP TAKE ONE CAPSULE BY MOUTH EVERY MORNING AND TAKE ONE CAPSULE EVERY EVENING AND TAKE THREE CAPSULES AT BEDTIME Last Filled: 12/13/23 (Active at [facility]) Rx Expiration Date: 10/05/24 Days Supply: 90 Remote MICONAZOLE NITRATE 2% (SABI) CREAM,TOP APPLY SMALL AMOUNT TO AFFECTED AREA TWICE A DAY FOR FUNGAL INFECTION Last Filled: 08/03/23 (Active at [facility]) Rx Expiration Date: 08/02/24 Days Supply: 30 Non-VA OMEPRAZOLE 20MG EC CAP TAKE 2 CAPSULES BY MOUTH TWICE DAILY Patient wants to buy from Non-[place] pharmacy. Medication prescribed by Non-[place] provider. Non-VA POTASSIUM CHLORIDE 10MEQ SA TAB TAKE TWO TABLETS BY MOUTH TWICE DAILY Patient wants to buy from Non-[place] pharmacy. Medication prescribed by Non-[place] provider. Remote POTASSIUM CHLORIDE 10MEQ TAB,SA TAKE TWO TABLETS BY MOUTH TWICE A DAY (POTASSIUM SUPPLEMENT) Last Filled: 12/08/23 (Active at [facility]) Rx Expiration Date: 10/05/24 Days Supply: 90 Non-[place] SELENIUM SULFIDE 2.5% LOTION/SHAMPOO APPLY DIRECTED TOPICALLY ONCE DAILY Patient wants to buy from Non-[place] pharmacy. Medication prescribed by Non-[place] provider. Remote SERTRALINE HCL 100MG TAB TAKE ONE-HALF TABLET BY MOUTH ONCE DAILY FOR ANXIETY Last Filled: 12/28/23 (Active at [facility]) Rx Expiration Date: 10/05/24 Days Supply: 90 Non-[place] SERTRALINE HCL 100MG TAB TAKE ONE-HALF TABLET BY MOUTH ONCE DAILY Patient wants to buy from Non-[place] pharmacy. Medication prescribed by Non-[place] provider. ------ SUPPLIES ------ /lianet/ KATHYA BAKER MD Primary Care Physician Signed: 01/30/2024 11:20 KATHYA BAKER [place]
--- OUTSIDE RECORDS SUMMARY | 2024-10-21 11:45 | XMS_ITS | Encounter Summary ---
Author Name [facility] [place] [facility] [place] Address [address] [place] [address] Care Team Providers Care Multicraft Operator Name Role Phone BC SPRINGER Primary Care [...] PART A Mar 12, 2018 PART A [id number] JOSEFA ROBISON III PATIENT Selected Encounter This section includes the information on record at [place] for the Encounter. Date/Time Encounter Type Encounter Description Reason Pro vider Source IHE Encounter Template Text not used by VA Advance Directives: All historical and current Section Date Range: From patient's date of to the date document was created. This section includes ALL of a patient's completed or amended VA Advance and Rescinded Directives. The entries below indicate that a directive exists for the patient, but an actual copy is not included with this document. The data comes from all [place] facilities. Date Advance Directives Provider Source May 02, 2014 ADVANCE DIRECTIVE DISCUSSION STEVEN MAGALLANES [facility]
--- OUTSIDE RECORDS SUMMARY | 2024-10-21 11:45 | XMS_ITS ---
Author Name [facility] [place] [facility] [place] Address [address] [place] [address] Care Team Providers Care Child Watch Attendant Name Role Phone BC SPRINGER Primary Care [...] PART A Mar 12, 2018 PART A [id number] [phone] JOSEFA ROBISON III PATIENT Selected Encounter This section includes the information on record at [place] for the Encounter. Date/Time Encounter Type Encounter Description Reason Pro vider Source Aug 17, 2024 03:07 AM Outpatient Encounter ADMIN PAT ACTIVTIES (MASNONCT) IHE Encounter Template Text not used by [facility] Plan of Treatment: Future Appointments (+ 6 [...] 20 appointments. The data comes from all [facility] facilities. Appointment Date/Time Appointment Type Appointme nt Facility Name Nov 20, 2024 10:00 AM AMBULATORY - MEDICINE [facility] Active, Pending, and Scheduled Orders This section includes a listing of several types of active, pending, and scheduled orders, including clinic medications orders, diagnostic test orders, procedure orders and consult orders; where the start date of the order is 45 days before the date of the Encounter or 45 days after the date of theEncounter. The data comes from all [facility] facilities. Test Date/Time Test Type Test Details Facility Name Sep 19, 2024 06:39 PM Consult Order TELEDERMAT OLOGY REQUEST/SPOPC OUTPT Cons Motel Manager's [facility] Advance Directives: All historical and current Section Date Range: From patient's date of to the date document was created. This section includes ALL of a patient's completed or amended [place] Advance and Rescinded Directives. The entries below indicate that a directive exists for the patient, but an actual copy is not included with this document. The data comes from all [place] facilities. Date Advance Directives Provider Source May 02, 2014 ADVANCE DIRECTIVE DISCUSSION STEVEN MAGALLANES [facility] Encounter Notes: All associated encounter notes This section contains the clinical notes associated to the Encounter. Date/Time Encounter Note(s) Provider Source Aug 17, 2024 03:07 AM PHARMACY NOTE: LOCAL TITLE: PHARMACY CUSTOMER CARE MEDICATION RENEWAL STANDARD TITLE: PHARMACY NOTE DATE OF NOTE: AUG 17, 2024@03:07 ENTRY DATE: AUG 17, 2024@03:07:56 AUTHOR: LIZZETTE LAWSON COSIGNER: URGENCY: STATUS: COMPLETED Date: Aug Division: [place] Pt referred by Pharmacy Call Center for medication renewal: Non-controlled/maintenanc e medication Medications requested: [id number] OMEPRAZOLE 20MG EC CAP Defer to primary care provider To be mailed . Please review and renew if appropriate. *This note was generated by [facility] Customer [facility]. If you have any questions or need assistance, do not contact this author. Please refer all questions to your local, on-site pharmacy departments. /lianet/ LIZZETTE LAWSON CPhT [employer] Inspector, MS/Pharmacy Customer Care Signed: 08/17/2024 03:08 Receipt Acknowledged By: 08/17/2024 15:11 /es/ BC SPRINGER NP NURSE PRACTITIONER 08/21/2024 11:54 /es/ JUANY WOODARDN,RN-BC REGISTERED NURSE (RN) LIZZETTE LAWSON [facility]
--- OUTSIDE RECORDS SUMMARY | 2024-10-21 11:45 | XMS_ITS | Encounter Summary ---
Author Name [facility] [place] [facility] Address [address] [place] [address] Care Team Providers Care Diaper Machine Tender Name Role Phone BC SPRINGER Primary Care [...] PART A Mar 12, 2018 PART A [id number] JOSEFA ROBISON III PATIENT Selected Encounter This section includes the information on record at [place] for the Encounter. Date/Time Encounter Type Encounter Description Reason Provider Source Jun 24, 2024 03:30 PM OFFICE O/P EST MOD 30 MIN PRIMARY CARE/MEDICINE ICD-10-CM I10 Essential (primary) hypertension OCTOBERBRANDY P IHE Encounter Template Text not used by VA Assessments - Encounter Diagnoses This section includes the primary and secondary diagnoses documented for the Encounter. Date/Time Primary/Secondary Diagnosis Diagnosis Name Provider Source Sep 19, 2024 06:40 PM PRIMARY Essential (primary) hypertension OCTOBER,BRANDY Briseno [place] Sep 19, 2024 06:40 PM SECONDARY Disorder of the skin and subcutaneous tissue, unspecified OCTOBERBRANDY [place] Sep 19, 2024 06:40 PM SECONDARY Gastro-esophageal reflux disease without esophagitis OCTOBER,BRANDY Briseno [place] Sep 19, 2024 06:40 PM SECONDARY Hyperlipidemia, unspecified OCTOBER,BRANDY Briseno [place] Plan of Treatment: Future Appointments (+ 6 months) and Future Tests (+/- 45 days) The Plan of Treatment section includes future care activities for the patient from all [place] [facility]. This section includes future appointments and future orders which are active, pending or scheduled. Future Appointments This section includes appointments that were scheduled to occur 6 months from the date of the Encounter, up to a maximum of 20 appointments. The data comes from all [place] treatment facilities. Appointment Date/Time Appointment Type Appointme nt Facility Name Jul 09, 2024 03:30 PM AMBULATORY - NONE [facility] Nov 20, 2024 10:00 AM AMBULATORY - MEDICINE [facility] Active, Pending, and Scheduled Orders This section includes a listing of several types of active, pending, and scheduled orders, including clinic medications orders, diagnostic test orders, procedure orders and consult orders; where the start date of the order is 45 days before the date of the Encounter or 45 days after the date of theEncounter. The data comes from all [place] treatment facilities. Test Date/Time Test Type Test Details Facility Name Jun 24, 2024 12:00 AM Laboratory - Microbiology Order URINE CULTURE(MWROX) URINE CLEAN CATCH SP [facility] Social History: Smoking Status (Most current) and Tobacco Use (All prior to encounter date) This section includes the most current, and the historical, smoking and tobacco- related health factors from the [place] facility where the Encounter took place. Current Smoking Status This section includes the most current smoking, or tobacco-related health factor, from the [place] facility where the Encounter took place. Date/Time Current Smoking Status Comment Myranda dalton Jan 30, 2024 10:00 AM [place] NEVER USED [place] Advance Directives: All historical and current Section Date Range: From patient's date of to the date document was created. This section includes ALL of a patient's completed or amended [place] Advance and Rescinded Directives. The entries below indicate that a directive exists for the patient, but an actual copy is not included with this document. The data comes from all [place] facilities. Date Advance Directives Provider Source May 02, 2014 ADVANCE DIRECTIVE DISCUSSION STEVEN MAGALLANES [facility] Encounter Notes: All associated encounter notes This section contains the clinical notes associated to the Encounter. Date/Time Encounter Note(s) Provider Source Jun 24, 2024 07:02 AM PHYSICIAN NOTE: LOCAL TITLE: MD NOTE STANDARD TITLE: PHYSICIAN NOTE DATE OF NOTE: JUN 24, 2024@07:02 ENTRY DATE: JUN 24, 2024@07:02:32 AUTHOR: BRANDY FRENCH COSIGNER: URGENCY: STATUS: COMPLETED Primary Care Progress Note CC: Solon is here to follow up the medical problems listed below HPI: Solon is generally feeling and doing well has a lesion on the left buttock. It started out as an irritated crater, and is now trying to heal, with a scaly area. It remains painful most of the time ROS:weight is stable; vision is stable; hearing is stable; no fevers or adenopathy; no CP/SOB/WILDE; gi--no diarrhea, hematochezia, melena; --no stones, hematuria, dysuria; skin--no lesions or rash, except as above; neuro-- no REYES, szs,stroke-like sx; MSK--no new problems FHx: mother 87, dementia; father 47, killed in the line of duty ([employer] agent) SHx: [place] x 4 years; tob-no; etoh--none; drugs none Active Medical Problems: Active problems - Computerized Problem List is the source for the followin. Hypokalemia 2. Sensorineural hearing loss 3. Benign prostatic hypertrophy hx recurrent UTI's, 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 4. Anxiety disorder with frequent somatic symptoms 5. 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 Prediabetes 8. Colonoscopy Colonoscopy 08/03/21 - st diverticulosis, flat polyp ileocecal valve and prox ascending colon, 2mm polyps ascending colon, splenic flexure pedunculated polyp, descending colon 2mm polyp - Dr Dayan Parsons Colonoscopy 10/12/21 - Ileocecal valve large polyp (18-22mm) proximal right colon - pathology confirmed adenocarcinoma - Dr Yesi Wright 9. Primary adenocarcinoma of colon 10. Obesity 11. Hypertension 12. Gastroesophageal reflux disease 13. Bravo's esophagus 2014 - EGD in [facility] - +Bravo's 2020 - EGD - neg Bravo's 14. Erectile dysfunction 15. Hyperlipidemia Surgery: left ankle surgery after posterior tibial tendon rupture and arterial injury Meds:Active Outpatient Medications (including Supplies): OMEPRAZOLE 20MG EC CAP TAKE TWO CAPSULES BY MOUTH EVERY ACTIVE MORNING 30 MINUTES BEFORE BREAKFAST Indication: FOR HEARTBURN Non-VA ATENOLOL 50/CHLORTHALIDONE 25MG TAB 1 TABLET BY ACTIVE MOUTH ONCE DAILY Non-VA ATORVASTATIN CALCIUM 80MG TAB 40MG BY MOUTH ONCE ACTIVE DAILY Non-VA GABAPENTIN 100MG CAP 100MG BY MOUTH TWICE DAILY ACTIVE Non-VA POTASSIUM CHLORIDE 10MEQ SA TAB 20MEQ BY MOUTH ACTIVE TWICE DAILY Non-VA SELENIUM SULFIDE 2.5% LOTION/SHAMPOO DIRECTED ACTIVE TOPICALLY ONCE DAILY Non-VA SERTRALINE HCL 100MG TAB 50MG BY MOUTH ONCE DAILY ACTIVE 7 Total Medications Active Medications from Remote Data ATORVASTATIN CA 80MG TAB Sig: TAKE ONE-HALF TABLET BY MOUTH EVERY EVENING (FOR CHOLESTEROL) Quantity: 45 Days Supply: 90 Original # of Refills: 3 Rx Expiration: 10/05/24 Last filled 02/14/24 at [facility] (Active) COLCHICINE 0.6MG TAB Sig: TAKE ONE TABLET BY MOUTH ONCE DAILY FOR ACUTE INFLAMMATION FROM GOUT ATTACK Quantity: 30 Days Supply: 30 Original # of Refills: 3 Rx Expiration: 10/06/24 Last filled 05/29/24 at [facility] (Active) CLOTRIMAZOLE 1% SOLN,TOP Sig: APPLY SMALL AMOUNT TO AFFECTED AREA TWICE A DAY FOR FUNGAL INFECTION OF THE SKIN Quantity: 30 Days Supply: 30 Original # of Refills: 6 Rx Expiration: 12/28/24 Last filled 01/01/24 at [facility] (Active) POTASSIUM CHLORIDE 10MEQ TAB,SA Sig: TAKE TWO TABLETS BY MOUTH TWICE A DAY (POTASSIUM SUPPLEMENT) Quantity: 360 Days Supply: 90 Original # of Refills: 3 Rx Expiration: 10/05/24 Last filled 05/29/24 at [facility] (Active) GABAPENTIN 100MG CAP Sig: TAKE ONE CAPSULE BY MOUTH EVERY MORNING AND TAKE ONE CAPSULE EVERY EVENING AND TAKE THREE CAPSULES AT BEDTIME Quantity: 450 Days Supply: 90 Original # of Refills: 3 Rx Expiration: 10/05/24 Last filled 05/29/24 at [facility] (Active) SERTRALINE HCL 100MG TAB Sig: TAKE ONE-HALF TABLET BY MOUTH ONCE DAILY FOR ANXIETY Quantity: 45 Days Supply: 90 Original # of Refills: 3 Rx Expiration: 10/05/24 Last filled 06/25/24 at [facility] (Active) MICONAZOLE NITRATE 2% (SABI) CREAM,TOP Sig: APPLY SMALL AMOUNT TO AFFECTED AREA TWICE A DAY FOR FUNGAL INFECTION Quantity: 142 Days Supply: 30 Original # of Refills: 3 Rx Expiration: 08/02/24 Last filled 08/03/23 at [facility] (Active) All:LISINOPRIL PEx: Wt: 253.6 lb [115.03 kg] (03/26/2024 09:10); Ht: 70 in [177.8 cm] (03/26/2024 09:10) Blood Pressure: 140/68 (06/24/2024 15:39) Pain: 0 (06/24/2024 15:39) Patient Height: 70 in [177.8 cm] (06/24/2024 15:39) Patient Weight: 248.8 lb [112.85 kg] (06/24/2024 15:39) Pulse: 58 (06/24/2024 15:39) Respiration: 20 (06/24/2024 15:39) Temperature: 96.1 F [35.6 C] (06/24/2024 15:39) is pleasant and appropriate; gait is normal; HEENT: PERRL, EOMI, mucous membranes are moist; neck is without nodes, bruits or JVD; lungs are CTA bilaterally, no wheezes, rales or rhonchi; heart is with rrr, no m,r,g. abd- soft and nontender; extrems are without cce; neuro--a&ox3 and coop, nonfocal. Left buttock examined with MOHIT Snyder present. There is a crusty 1.5x1.5 cm lesion Data: All available test results were reviewed with the marion SERUM Mar 26 Reference 2023 09:03 Units Ranges ------- GLUCOSE 93 mg/dL 65 - 100 BUN 15 mg/dL 7 - 25 CREATININE 0.83 mg/dL .5 - 1.4 eGFR(IDMS) Ref: >=60 CREAT mg/dL .5 - 1.5 eGFR See Eval Ref: See Eval Sodium 141 mmol/L 135 - 145 K+/Pot 3.5 mmol/L 3.5 - 5 CL 103 mmol/L 100 - 110 CO2 27 mEq/L 20 - 30 CA mg/dL 8.5 - 10.2 UricAci 8.4 H mg/dL 3.5 - 7.2 NH3/Amm PO4 mg/dL 2.5 - 5 T. PROT 6.7 g/dL 6 - 8.3 ALBUMIN 3.7 g/dL 3.5 - 5 T BILI 0.7 mg/dL .2 - 1.2 D. BILI mg/dL 0 - .5 AST 21 U/L 5 - 34 ALT 21 U/L <6 - 55 GGT U/L 10 - 65 ALK MARIA FERNANDA 82 U/L 40 - 150 AMYLASE U/L 25 - 125 MAG mg/dL 1.6 - 2.6 ACETONE Ref: Neg T3 Total ng/dL 35 - 193 SERUM Mar 26 Reference 2023 09:03 Units Ranges ------- CHOL 113 mg/dL <7 - 199 TRIG 91 mg/dL 0 - 150 HDL 38 L mg/dL 40 - 60 LDL-d mg/dL <10 - 120 LDL 57 mg/dL 0 - 129 CHO/HDL 3.0 BLOOD Mar 26 Reference 2023 09:03 Units Ranges ------- HgbA1c Hgb-A1c % 4.4 - 6.1 Hgb-A1c % 3 - 6.1 HGB A1C % 4.4 - 6.4 Hgb-A1C % 3.4 - 6.1 HGB-A1c 5.7 H % 4 - 5.6 SERUM Mar 26 Reference 2023 09:03 Units Ranges ------- T-U % 32 - 48 T4 ug/dL 4.5 - 12 TSH 2.15 uIU/mL .35 - 5 FTI ug/dL 6.3 - 12.4 T3FR pg/mL CHLOE AB IU/mL 0 - 2 TSIG % baseline URINE Mar 26 Reference 2023 09:03 Units Ranges ------- WBC/HPF 21-50 H /HPF 0 - 5 RBC/HPF 3-5 /HPF 0 - 3 BACTI 1+ /HPF Ref: NoneObs EPITH C SQ.EPTH /HPF TR.EPTH /HPF YEAST /HPF SPERM /HPF Ref: Not Established CRYSTLS Ref: NoneAbs CASTS HYALINE /LPF 0 - 2 COARSE /LPF FINE GR /LPF WBCCast /LPF Ref: None RBCCast /LPF Ref: None URIC AC /HPF Ref: None CA++ OX /HPF Ref: Not Established TRI MARIA FERNANDA /HPF Ref: Not Established AM URAT /HPF AM PHOS /HPF URINE Mar 262023 09:03 Units Ranges ------- Color Light-Yellow Ref: Yellow Appear Turbid Ref: Clear pH 6.5 5 - 9 GlucUr Normal mg/dL Ref: Negative [place] Neg mg/dL Ref: Negative Blood Neg mg/dL Ref: Negative Protein Neg mg/dL Ref: Negative LeukEs LARGE Ref: Negative Nitrit Neg mg/dL Ref: Negative Biliru Neg mg/dL Ref: Negative UroBiln Normal mg/dL Ref: <2.0 SpeGra 1.015 L 1.016 - 1.022 ---- HEPATITIS TESTS ---- SERUM Mar 26 Mar 262023 09:04 09:03 Units Ranges ------- HepBSAg Non Reactive Ref: NON-REACTIVE HepBSAb Non Reactive Ref: NON-REACTIVE S/N Rat Ref: 10or > HepBCor Ref: NON-REACTIVE CoreIgM Ref: NON-REACTIVE HeDelta Ref: NoneDet HepBeAg Ref: Neg HepBeAb Ref: Neg or NR HepAAb Ref: Neg HepAIGM Ref: NON-REACTIVE HepCAb Ref: NonReact HepC Ab NON-REACTIVE Ref: NON-REACTIVE BLOOD Mar 262023 09:03 Units Ranges ------- WBC 9.84 K/cmm 4.5 - 11 RBC 4.93 M/cmm 4.23 - 5.66 HGB 15.1 g/dL 12.8 - 17 HCT 43.9 % 39.2 - 50.4 MCV 89.0 fl 82 - 99 MCH 30.6 pg 26.2 - 32.6 MCHC 34.4 g/dL 30.8 - 35.1 RDW 12.2 % 12 - 16 PLT 230 K/cmm 140 - 360 Neut% 39.0 L % 43.7 - 75.8 Lymph% 48.9 H % 14 - 42.3 [place]% 7.1 % 5.1 - 13.7 Eos% 3.8 % .4 - 6.8 Baso% 0.7 % .1 - 2 IG% 0.5 % 0 - .7 NeutAbs 3.84 K/cmm 2.2 - 7.6 LymAbs 4.81 H K/cmm 1 - 3.2 MonoAbs 0.70 K/cmm .3 - 1.1 EosAbs 0.37 K/cmm .03 - .44 BasoAbs 0.07 K/cmm .01 - .13 IG,Abs 0.05 K/cmm 0 - .06 NRBC% 0.0 % 0 - 0 NRBC# 0.00 K/cmm 0 - 0 RETIC % % .6 - 2 RETIC # K/cmm 30 - 90 ---- MISCELLANEOUS TESTS ---- DATE TIME SPECIMEN TEST VALUE Ref ranges ------- Mar 26, 2024@09:03 SERUM HIV 1&2 Ag/Ab SCREEN: NON-REACTIVE Ref: Nonreactive Mar 26, 2024@09:03 SERUM eGFR(CKD-EPI 2020): >90 mL/min Ref: >=60 A/P: All instructions were explained for the , who expressed understanding and agreement. 1. Abnormal UA--will get culture and sensitivities 2. Knee OA--he is treated with Durolane on the left and CSI on the right about every 6 months 3. Buttock lesion--will consult tele-dermatology 4. Hyperuricemia--will follow 5. Hyperlipidemia--continue meds 6. Hypertension--BP is controlled on current medication 7. HCM--Await c-scope eval at [place]; prostate screen--problem list indicates BPH, will review other [facility] for any past abnormality 8. Follow up 6 months, or as needed Medication Reconciliation: Outpatient: Has the patient been taking medications as documented in the EMLR? YES: The patient has been taking medications as documented in the EMLR. Essential Medication List for Review used to complete this medication reconciliation. INCLUDED IN THIS LIST: Alphabetical list of active outpatient prescriptions dispensed from this [facility] (local) and dispensed from another [facility] or [facility] facility (remote) as well as inpatient [...] whether with a VA or non-VA provider. /lianet/ Brandy French MD INTERNAL MEDICINE and RHEUMATOLOGY Signed: 09/19/2024 18:42 BRANDY FRENCH [place]
--- OUTSIDE RECORDS SUMMARY | 2024-10-21 11:45 | XMS_ITS | Encounter Summary ---
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 Date/Time Encounter Type Encounter Description Reason Provider Source Dec 28, 2023 10:00 AM OFF/OP CNSLTJ NEW/EST LOW 30 PODIATRY ICD-10-CM M20.21 Hallux rigidus, right foot PATSY SAWYER Encounter Template Text not used by [facility] Assessments - Encounter Diagnoses This section includes the primary and secondary diagnoses documented for the Encounter. Date/Time Primary/Secondary Diagnosis Diagnosis Name Provider Source Dec 28, 2023 01:29 PM PRIMARY Hallux rigidus, right foot PATSY SAWYER [facility] Dec 28, 2023 01:29 PM SECONDARY Gout, unspecified EDWARDECKPATSY Gonzalez [facility] Dec 28, 2023 01:29 PM SECONDARY Hallux rigidus, left foot PATSY SAWYER [facility] Dec 28, 2023 01:29 PM SECONDARY Tinea unguium EUNICE SAWYERALD Nancy [facility] Plan of Treatment: Future Appointments (+ 6 months) and Future Tests (+/- 45 days) The Plan of Treatment section includes future care activities for the [facility] [place] [facility] This section includes future appointments and future orders which are active, pending or scheduled. Future Appointments This section includes appointments that were scheduled to occur 6 months from the date of the Encounter, up to a maximum of 20 appointments. The data comes from all [place] treatment facilities. Appointment Date/Time Appointment Type Appointme nt Facility Name Jan 30, 2024 10:00 AM AMBULATORY - MEDICINE [facility] Mar 26, 2024 09:00 AM AMBULATORY MEDICINE [facility] Jun 24, 2024 03:30 PM AMBULATORY MEDICINE [facility] Social History: Smoking Status (Most current) and Tobacco Use (All prior to encounter date) This section includes the most current, and the historical, smoking and tobacco- related health factors from the [place] facility where the Encounter took place. Current Smoking Status This section includes the most current smoking, or tobacco-related health factor, from the [place] facility where the Encounter took place. Date/Time Current Smoking Status Comment Myranda dalton Jan 04, 2023 01:30 PM VA-TOBACCO NEVER USED [facility] Tobacco Use History This section includes a history of the smoking, or tobacco-related health factors, that were collected on or before the date of the Encounter. The data comes from the [place] facility where the Encounter took place. Date/Time Smoking Status/Tobacco Use Comment F acdee dee Dec 01, 2021 01:00 PM VA-TOBACCO NEVER USED [facility] Dec 16, 2020 02:00 PM VA-TOBACCO NEVER USED [facility] Sep 12, 2019 03:54 PM VA-TOBACCO NEVER USED [facility] Jul 18, 2018 09:31 AM VA-TOBACCO NEVER USED [facility] Jun 29, 2017 08:55 AM LIFETIME NON-TOBACCO USER [facility] Jun 09, 2016 01:15 PM LIFETIME NON-TOBACCO USER [facility] Jun 25, 2015 03:49 PM LIFETIME NON-TOBACCO USER [facility] Advance Directives: All historical and current [...] 02, 2014 ADVANCE DIRECTIVE DISCUSSION STEVEN MAGALLANES [facility] Encounter Notes: All associated encounter notes This section contains the clinical notes associated to the Encounter. Date/Time Encounter Note(s) Provider Source Dec 28, 2023 10:49 AM PODIATRY OUTPATIEN T CONSULT: [facility] TITLE: PODIATRY CONSULT - OUTPATIENT STANDARD TITLE: PODIATRY OUTPATIENT CONSULT DATE OF NOTE: DEC 28, 2023@10:49 ENTRY DATE: DEC 28, 2023@10:49:38 AUTHOR: GRACIELA DAVIS COSIGNER: PATSY SAWYER URGENCY: STATUS: COMPLETED PODIATRY CONSULT - OUTPATIENT Has ADDENDA HPI: Josefa Colby III is a 68-year old MALE with PMHx as below. Pt presents to the podiatric surgery clinic with a chief complaint of elongated toenails and big toe pains. Pt relates that he has some knee pains and it can be hard to clip his own toenails. Pt relates that his left big toe sometimes gets painful and red and swollen. Pt is aware he has gout with a UA of 9.4. Pt relates that he was prescribed colchicine but is not aware of allopurinol. Pt relates that he will d/w PCP if this is an appropriate medication for him. ROS: 10 point review of systems performed with pertinent positives and negatives listed above in the HPI, otherwise unremarkable. PMHx (per CPRS): Code Description I10. 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 ([facility] [id number]) M72.2 Plantar fasciitis ([facility] [id number]) E66.9 Obesity ([facility] [id number]) R73.01 Impaired fasting glucose ([facility] 933424269) R97.20 Raised PSA ([facility] [id number]) C18.2 Malignant tumor of ascending colon ([facility] [id number]) C18.2 Malignant tumor of ascending colon ([facility] [id number]) C18.9 Carcinoma of colon ([facility] 514791093) M54.50 Back pain ([facility] [id number]) H93.13 Tinnitus ([facility] [id number]) M17.0 Bilateral osteoarthritis of knees ([facility] [id number]) PSHx: Allergies DISPLAYED IN VISTA: LISINOPRIL, PENICILLIN, SEPTRA DS Medications: Active Outpatient Medications (excluding Supplies): Active Outpatient Medications Status 1) ATENOLOL 50/CHLORTALIDONE 25MG TAB TAKE ONE TABLET ACTIVE BY MOUTH ONCE DAILY FOR HIGH BLODD PRESSURE 2) ATORVASTATIN CALCIUM 80MG TAB TAKE ONE-HALF TABLET BY ACTIVE MOUTH EVERY EVENING (FOR CHOLESTEROL) 3) COLCHICINE 0.6MG TAB TAKE ONE TABLET BY MOUTH ONCE ACTIVE DAILY FOR ACUTE INFLAMMATION FROM GOUT ATTACK 4) GABAPENTIN 100MG CAP TAKE ONE CAPSULE BY MOUTH EVERY ACTIVE MORNING AND TAKE ONE CAPSULE EVERY EVENING AND TAKE THREE CAPSULES AT BEDTIME 5) MICONAZOLE NITRATE 2% (SABI) TOP CREAM APPLY SMALL ACTIVE AMOUNT TO AFFECTED AREA TWICE A DAY FOR FUNGAL INFECTION 6) OMEPRAZOLE 40MG EC CAP TAKE ONE CAPSULE BY MOUTH ACTIVE EVERY MORNING FOR HEARTBURN BEST TAKEN BEFORE BREAKFAST 7) POTASSIUM CHLORIDE 10MEQ SA TAB TAKE TWO TABLETS BY ACTIVE MOUTH TWICE A DAY (POTASSIUM SUPPLEMENT) 8) SERTRALINE HCL 100MG TAB TAKE ONE-HALF TABLET BY ACTIVE MOUTH ONCE DAILY FOR ANXIETY Active Non-VA Medications Status 1) Non-VA ASPIRIN 81MG EC TAB 81MG MOUTH ONCE DAILY ACTIVE 9 Total Medications Social: PHYSICAL EXAMINATION T: 99 F [37.2 C] (10/05/2023 13:06) P: 65 (10/05/2023 13:06) B/P: 125/64 (10/05/2023 13:06) BODY MASS INDEX OCT 05, 2023@13:06:22 37.7 Gen: alert, no distress LE exam Vasc: DP/PT 2/4 B/L, CFT: <3 seconds x 10 digits, Pedal hair present Neuro: Protective sensation 10/10 via SWMF Derm: No open wounds, erythema, hyperkeratosis, or interdigital maceration MSK: Biomech: right left ankle (extended)DF = 5 DF = 5 (flexed)DF = 10 DF = 10 STJ inv = 20 = 20 ever = 10 = 10 1st ray 5mm DF/PF 5mm DF/PF 1st mpj DF = 25 DF = 25 PF = 15 PF = 15 RCSP 2 deg calc valgus b/l NCSP rectus rectus FF to RF 2 deg varus 2 deg varus foot type b/l flex pes planus WB toes rectus 1-5 b/l Gait: propulsive with early heel lift b/l. shoulders even b/l, hips at even level. Arm swing minimal. Labs: HbA1C: No selection items chosen for this component. Micro: Imaging: Left foot XR (07/18/23) Impression: The osseous structures, joint spaces and the overlying soft tissues are unremarkable. 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 - Med rec done on all podiatric surgery prescribed meds. - Debrided nails x 10 - Rx clotrimazole soln for onycho - Rx sportsoft, deep heel cup, neutral post, 1st ray cut out. will plan for carbonfiber foot plate in lieu of arango's extension - PCP to consider allopurinol for maintanence of hyperuricemia? - Discussed the importance of daily hygiene and observation of feet for wounds or irregularities. Advised patient to return to clinic for any pain or other pedal concerns, and to present to ED if urgent occurrences of fever, purulence, or erythema. Patient verbalized comprehension. - RTC BMX: sportsoft, deep heel cup, neutral post, 1st ray cut out. will plan for carbonfiber foot plate in lieu of arango's extension - RTC 6 months - RTC pod tech q 6 months for nailcare Attending, Dr. Sawyer /lianet/ GRACIELA DAVIS DPM-PHD Podiatric Surgery, PGY-3 Signed: 12/28/2023 11:11 /lianet/ PATSY SAWYER DPM ATTENDING Cosigned: 12/28/2023 13:29 12/28/2023 ADDENDUM STATUS: COMPLETED ROS: 10 point review of systems performed with pertinent positives and negatives listed above in the HPI, otherwise unremarkable. I personally saw this 68 y/o male patient patient, discussed the resident's history and exam and repeated critical portions of exam as well. The assesment and plan were discussed with the patient as well as risks and benefits of the treatment plan in above note. Medication recon was done on all podiatric medications prescribed. I agree with the note and plan above.Patient with tinea nails as well as h/o MTPJ gout and ahllux limitus. Concur with CMOs as well as may need Carbon fiber flat mortons plate in addition to orthotics. Time will answer that question /es/ PATSY SAWYER DPM ATTENDING Signed: 12/28/2023 13:33 GRACIELA DAVIS [facility]
[2024-12-16 12:45] VITALS: BMI 36.8
[2024-12-16 13:33] VITALS: BMI 36.8
--- NOTE | 2024-12-17 08:55 | HO.ANESPROP2 ---
Documented by User: Sonal Kang NP 12/17/24 09:00 HPI - Anesthesia Eval Consult details Narrative: 69yo M for Colonoscopy s/p hemicolectomy 2021 [facility] Past Medical History Medical History Hyperlipidemia Bravo esophagus GERD (gastroesophageal reflux disease) Anxiety BPH (benign prostatic hyperplasia) Colon cancer HTN (hypertension) Surgical History Surgical History H/O colonoscopy H/O hemicolectomy Social History Social History Alcohol intake: never Patient Tobacco Use Status: Never used Tobacco Use of substances other than those prescribed or required for medical reasons: No Have you been hit, kicked, punched, or otherwise hurt by someone within the past year? If so, by whom?: No Spiritual Healthcare Practices: no Yazidi Healthcare Practices: no Cultural Healthcare Practices: no Advance Directives: No (states daughter is primary contact) Advance Directives Information Provided: Yes (as above noted) Advance Directives on File: No Meds Allergies Allergy/AdvReac Type Severity Reaction Status Date / Time lisinopril Allergy Severe tongue Verified 12/18/24 08:20 swelling ciprofloxacin (From Cipro) Allergy Intermediate Shakiness Verified 12/16/24 12:43 Penicillins Allergy Unknown childhood Verified 12/16/24 13:29 allergy Home Medications ?Medication ?Instructions ?Recorded ?Confirmed ?Last Taken ?Type atenolol 50 mg-chlorthalidone 25 1 tab PO DAILY 05/20/24 12/16/24 Unknown History mg tablet atorvastatin 80 mg tablet 80 mg PO DAILY 05/20/24 12/16/24 Unknown History clotrimazole 1 % topical solution 1 appl topical BID 05/20/24 12/16/24 Unknown History colchicine 0.6 mg tablet 0.6 mg PO DAILY 05/20/24 12/16/24 Unknown History gabapentin 100 mg capsule 100 mg PO TID 05/20/24 12/16/24 Unknown History omeprazole 40 mg capsule,delayed 40 mg PO DAILY 05/20/24 12/16/24 Unknown History release potassium chloride 10 mEq 20 meq PO BID 05/20/24 12/16/24 Unknown History tablet,extended release sertraline 100 mg tablet 50 mg PO DAILY 05/20/24 12/16/24 Unknown History Exam Height,Weight and Vital Signs: Height 5 ft 9 in Weight 113 kg Assessment and Plan Assessment Anesthesia Assessment: Chart Reviewed Documented by User: Ana Marti MD 12/18/24 08:23 PMFSH Past Medical History Medical History Hyperlipidemia Bravo esophagus GERD (gastroesophageal reflux disease) Anxiety BPH (benign prostatic hyperplasia) Colon cancer HTN (hypertension) Family History Family history of problems with anesthesia: No Surgical History Surgical History H/O colonoscopy H/O hemicolectomy History of Problems with Anesthesia: No Social History Social History Alcohol intake: never Patient Tobacco Use Status: Never used Tobacco Use of substances other than those prescribed or required for medical reasons: No Have you been hit, kicked, punched, or otherwise hurt by someone within the past year? If so, by whom?: No Spiritual Healthcare Practices: no Yazidi Healthcare Practices: no Cultural Healthcare Practices: no Advance Directives: No (states daughter is primary contact) Advance Directives Information Provided: Yes (as above noted) Advance Directives on File: No Meds Allergies Allergy/AdvReac Type Severity Reaction Status Date / Time lisinopril Allergy Severe tongue Verified 12/18/24 08:20 swelling ciprofloxacin (From Cipro) Allergy Intermediate Shakiness Verified 12/16/24 12:43 Penicillins Allergy Unknown childhood Verified 12/16/24 13:29 allergy Home Medications ?Medication ?Instructions ?Recorded ?Confirmed ?Last Taken ?Type atenolol 50 mg-chlorthalidone 25 1 tab PO DAILY 05/20/24 12/16/24 Unknown History mg tablet atorvastatin 80 mg tablet 80 mg PO DAILY 05/20/24 12/16/24 Unknown History clotrimazole 1 % topical solution 1 appl topical BID 05/20/24 12/16/24 Unknown History colchicine 0.6 mg tablet 0.6 mg PO DAILY 05/20/24 12/16/24 Unknown History gabapentin 100 mg capsule 100 mg PO TID 05/20/24 12/16/24 Unknown History omeprazole 40 mg capsule,delayed 40 mg PO DAILY 05/20/24 12/16/24 Unknown History release potassium chloride 10 mEq 20 meq PO BID 05/20/24 12/16/24 Unknown History tablet,extended release sertraline 100 mg tablet 50 mg PO DAILY 05/20/24 12/16/24 Unknown History Exam Airway Mallampati Class: II TM Dist: >3cm Neck ROM: Limited Heart: rrr Lungs: cta Assessment and Plan Assessment Anesthesia Assessment: Anesthesia Plan Discussed Final Anesthetic Review Family History of Problems with Anesthesia: No History of Problems with Anesthesia: No NPO: Yes ASA Class: III Final Preanesthetic Review: No Changes in Pt Med Stat, Meds/Allgs Chart Reviewed, Consent Obtained/Reviewed and Anes Risks/Benef Reviewed Patient Risk: Intermediate Procedure Risk: Low Anesthetic Plan Anesthetic Plan: MAC: Disposition: Standard PACU
[2024-12-18 07:58] VITALS: BP 141/77; PULSE 66; RESP 20; TEMP 36.9; O2SAT 96
[2024-12-18 08:08] VITALS: BMI 35.6
[2024-12-18] MEDS: Lactated Ringers 1,000 ML 100 ML IVCONT (08:21)
--- NOTE | 2024-12-18 08:36 | P.HPSUR_ITS ---
Pre-Procedural Eval Section A - 24 Hr Update-Section A only Date of Service: 12/18/24 Section B - Complete if H&P > 30 days Chief Complaint: Encounter for screening for malignant neoplasm of Relevant Family History (Specify if Yes): No Relevant Social History: None Present Medications: see Short Stay Collaborative assessment Medical History: Significant History ( Hyperlipidemia Bravo esophagus GERD ( gastroesophageal reflux disease) Anxiety BPH (benign prostatic hyperplasia) Colon cancer HTN (hypertension)) History of Previous Operations: Relevant previous surgery/procedure and date(s) (H/O colonoscopy H/O hemicolectomy) Allergies: Allergies Allergy/AdvReac Type Severity Reaction Status Date / Time lisinopril Allergy Severe tongue Verified 12/18/24 08:20 swelling ciprofloxacin (From Cipro) Allergy Intermediate Shakiness Verified 12/16/24 12:43 Penicillins Allergy Unknown childhood Verified 12/16/24 13:29 allergy Review of Systems Sugical H&P ROS: Negative: Constitution, Cardiovascular, Respiratory, Neurological, Psychiatric, Hem-Onc, Allergic/Immunologic, Gastrointestinal, Genitourinary, Musculoskeletal, Integumentary, Endocrine and Eyes/Ears/Nose/Throat Exam Surgical H&P Exam: Normal: HEENT, Normal: Heart, Normal: Lungs, Normal: Extremities, Normal: Abdomen, Normal: Skin and Normal: Neurological Plan Diagnosis/Plan: Unchanged I have reviewed the history and physical and performed a pertinent physical examination on my patient. No changes have occurred unless specified. Time Spent With Patient Time: Total time managing care of this patient today ____ minutes.
--- NOTE | 2024-12-18 09:44 | HO.OPN-COLON ---
Colonoscopy Operative Note Operative Note Date of Service: 12/18/24 Narrative: Operative Information Procedure Description: Colonoscopy Indication: ?hx of right sided adenoca, no surgery Anesthesia: MAC COLONOSCOPY Instrument: Olympus variable stiffness adult scope 190L Colonoscopy Monitoring: Vital signs and clinical assessment, continuous EKG monitoring, Pulse oximetry, Carbon Dioxide monitoring and blood pressure monitoring were done throughout the procedure. Colon withdrawal time was 12 minutes. Procedure: The patient was placed in the left lateral decubitis position and pre-procedure medications were administered. After a digital rectal examination of the ano-rectum, the video colonoscope was inserted into the rectum and advanced through the colon to the cecum/TI. The colonoscope was slowly withdrawn in a retrograde panoramic fashion and the colon mucosa was carefully examined including a retroflexed view of the rectum. Findings and interventions are described below. Procedure Difficulty: moderate Findings: Terminal Ileum-normal Cecum:normal, no flat lesions or masses noted Ascending Colon: normal Transverse Colon -normal Descending Colon: 2-3 mm sessile polyp removed with cold forceps Sigmoid Colon: mdoerate severe diverticulosis Rectum: Retroflexion with small internal hemorrhoids seen, grade I Anorectum - normal Intervention: cold forceps Colon preparation: [place] Bowel Preparation Scale Right colon; 2 Transverse colon: 2 Left colon; 2 (0 = Unprepared colon segment with mucosa not seen due to solid stool that cannot be cleared. 1 = Portion of mucosa of the colon segment seen, but other areas of the colon segment not well seen due to staining, residual stool and/or opaque liquid. 2 = Minor amount of residual staining, small fragments of stool and/or opaque liquid, but mucosa of colon segment seen well. 3 = Entire mucosa of colon segment seen well with no residual staining, small fragments of stool or opaque liquid) Impression and Post Procedure Diagnosis: diverticulosis colon polyp internal hemorrhoids Plan: High fiber diet leaflet Avoid straining at stool, epsom salts and sitz bath, anusol supps or cream Repeat Colonoscopy in 1 year or earlier if clinically indicated I dont have the path from his last colo but per PCP there is a hx of CRC, also flat polyps specifically in the right colon. Careful inspection today did not reveal and lesion or mass. He told me that he has been getting CT scans for surveillance just need to make sure he is up to date Above findings were reviewed with the patient and relevant handouts were provided if indicated.
[2024-12-18 09:45] VITALS: BP 95/43; PULSE 54; RESP 17; TEMP 36.1; O2SAT 96
[2024-12-18 10:00] VITALS: BP 101/53; PULSE 54; RESP 16; TEMP 36.1; O2SAT 99
== END 2024-12-18 10:33 | disposition home or self-care (01) ==
PROVIDERS: Visit Provider Internal Medicine Gastroenterology
PROC: 0DJD8ZZ Inspection of Lower Intestinal Tract, Via Natural or Artificial Opening Endoscopic (ICD-10-PCS; CPT 45378; principal; 2024-12-18 09:20)
DX: Z12.11 Encounter for screening for malignant neoplasm of colon (principal); K63.5 Polyp of colon; K57.30 Diverticulosis of large intestine without perforation or abscess without bleeding; Z85.038 Personal history of other malignant neoplasm of large intestine; Z90.49 Acquired absence of other specified parts of digestive tract; K64.0 First degree hemorrhoids; K59.00 Constipation, unspecified; K21.9 Gastro-esophageal reflux disease without esophagitis; K22.70 Barrett's esophagus without dysplasia; I10 Essential (primary) hypertension; E78.5 Hyperlipidemia, unspecified; N40.0 Benign prostatic hyperplasia without lower urinary tract symptoms; E66.9 Obesity, unspecified; Z68.36 Body mass index [BMI] 36.0-36.9, adult; E11.9 Type 2 diabetes mellitus without complications; F41.9 Anxiety disorder, unspecified; Z79.899 Other long term (current) drug therapy; Z88.0 Allergy status to penicillin; Z88.1 Allergy status to other antibiotic agents; Z88.8 Allergy status to other drugs, medicaments and biological substances
CPT/HCPCS: 45380; 88305; J2003; J2704

== ENCOUNTER → 2024-12-18 07:54 | Outpatient (BNV) | payer OTHER, SELFPAY | PROVIDERS: Visit Provider Internal Medicine Gastroenterology | DX: Z12.11 Encounter for screening for malignant neoplasm of colon (principal); K64.8 Other hemorrhoids; K63.5 Polyp of colon; K57.90 Diverticulosis of intestine, part unspecified, without perforation or abscess without bleeding | CPT/HCPCS: 45380 ==

== ENCOUNTER 2025-04-21 09:47 | Outpatient (AMB) | payer OTHER, SELFPAY ==
--- NOTE | 2025-04-21 09:49 | MHC.OFFVIS ---
Intake Visit Reasons: Elevated PSA Intake Note: New Patient is present for elevated PSA Urology Rx: Potassium Blood Thinners:Aspirin Imaging completed: None Labs done : PSA 6.5 Client Resource Specialist Required: No Accompanied by: Self / Same As Patient Allergies lisinopril Allergy (Severe, Verified 04/21/25 14:59) tongue swelling ciprofloxacin (From Cipro) Allergy (Intermediate, Verified 04/21/25 14:59) Shakiness Penicillins Allergy (Unknown, Verified 04/21/25 14:59) childhood allergy Medication List - Last Reconciled 04/21/25 by Nathalie Barahona [facility] atenolol-chlorthalidone 50-25 mg 1 tab PO DAILY atorvastatin 80 mg PO DAILY clotrimazole 1% 1 appl topical BID colchicine 0.6 mg PO DAILY gabapentin 100 mg PO TID methylcellulose (laxative) (Citrucel) 500 mg PO DAILY omeprazole 40 mg PO DAILY potassium chloride ER 20 mEq PO BID sertraline 50 mg PO DAILY simethicone 125 mg PO BID-QID PRN HPI Comments Details: Pedro is a 70-year-old male patient of Dr. Moore. He has a past medical history of hyperlipidemia, Bravo's esophagus, GERD, anxiety, BPH, colon cancer, and hypertension. He presents to the office today as a new patient to establish urological care. He reports a longstanding history of urological care through the [place] in [place] and now here in [place]. He reports a previous history of chronic prostatitis as well as a history of a couple of urinary tract infections. He reports a longstanding history of prostatitis and has previously been treated with ciprofloxacin in the past. He also discusses his typical prostatitis symptoms are perineal pressure and or discomfort which he is not currently experiencing. In office MILEY was performed prostate was noted to be boggy no nodules or masses palpated. He reports having recently followed up with his PCP in his PSA was noted to be elevated. In review of patient's chart it appears PSA 03/06 6.5. We did discussed potential causes of elevated PSA as well as urinary tract infections and chronic prostatitis. We did discussed further interventions and risks and benefits of these interventions. Unable to obtain urine for urinalysis today as patient unable to void. We did discuss signing medical release form to obtain previous urology records for continuity of care. He does report intermittent episodes of urinary urgency and frequency however feels he is managing these symptoms well independently. We did discuss acute prostatitis versus chronic prostatitis. He denies incontinence, nocturia, hematuria, dysuria, foul smelling urine, changes to urinary stream, flank pain, fever, and or chills. All questions were answered. He otherwise offers no other issues or concerns at this time. [facility] Medical History Hyperlipidemia Bravo esophagus GERD (gastroesophageal reflux disease) Anxiety BPH (benign prostatic hyperplasia) Colon cancer HTN (hypertension) Surgical History H/O colonoscopy H/O hemicolectomy Social History Alcohol intake: never Patient Tobacco Use Status: Never used Tobacco Review of Systems Const All systems reviewed & are unremarkable except as noted in HPI and below Physical Exam Const General: cooperative, healthy appearing, comfortable, no acute distress, well developed, alert and awake Orientation/consciousness: patient oriented x3 Limitations: no limitations HEENT Head: Yes normal to inspection, Yes normocephalic and Yes atraumatic Ears: hearing grossly normal bilaterally Eyes General: appearance normal, both eyes and all related structures Neck Neck: Yes normal visual inspection and Yes trachea midline Chest Chest palpation & inspection: normal inspection of the chest Resp Effort & Inspection: normal respiratory effort and able to speak in complete sentences Cardio Rate: regular rate GI Inspection: Yes normal to inspection General: Yes no CVA tenderness Back/Spine/Pelvis Back: no CVA tenderness Skin General skin exam: no rashes or lesions noted Neuro General: patient oriented x3 Extrem General: Yes normal to inspection Psych Appearance: grossly normal and well kempt Mental Status: mental status grossly normal Speech and movement: Normal speech and movement present and Clear speech present Affect: normal affect Attitude: cooperative Thought process: Normal thought process present Thought content: Normal thought content present Insight: Fair insight present (Psych) Judgement: Fair judgement present (Psych) Assessment & Plan Assessment & Plan (1) Elevated PSA: Code(s): R97.20 - Elevated prostate specific antigen [PSA] Category: Medical (2) Prostatitis: Code(s): N41.9 - Inflammatory disease of prostate, unspecified Category: Medical Plan Unable to obtain urine for urinalysis today as patient unable to void however orders placed to obtain urinalysis and culture. We did discussed potential causes of elevated PSA, prostatitis, and urinary tract infections; we did discussed further workup in risks and benefits of these interventions. Will obtain redraw of PSA with no sex the night before, no caffeine morning of, and no heavy lifting 1-2 days prior. Will obtain MRI of the prostate for further assessment evaluation. MILEY was performed; boggy prostate was noted. He is happy with his current voiding parameters. We discussed signing medical release form to obtain previous urology records for continuity of care. All questions were answered. Follow-up in 1-3 months with imaging and labs to be completed prior; or sooner with any issues, concerns, and or questions. Orders: Orders PSA,Total (Free>4and<10) Today N41.9 - Inflammatory disease of prostate, unspecified, R97.20 - Elevated prostate specific antigen [PSA] MR Prostate wo/w con Today N41.9 - Inflammatory disease of prostate, unspecified, R97.20 - Elevated prostate specific antigen [PSA] UA CC w/rflx Micro + Cult Today N41.9 - Inflammatory disease of prostate, unspecified, R97.20 - Elevated prostate specific antigen [PSA] Patient Instructions: The patient had an opportunity to ask questions regarding the treatment plan. All questions were answered. Physical exam, labs, and imaging were discussed and reviewed in detail. As well as risks, benefits, and discussion of treatment choices. No major barriers to understanding were identified. The patient expressed understanding and agreement with the above treatment plan. The patient was made aware they should contact our office by phone for worsening of their current condition, the appearance of new symptoms, or with any questions or concerns. Compliance is encouraged with any medications and follow up testing that is ordered. It is a privilege to be allowed the opportunity to participate in? your urological care.? Again, if you have any questions or concerns If you have any questions or concerns please do not hesitate to contact me. The office is [phone]. This note is constructed using voice recognition software. While every effort has been made to ensure accuracy colorist photography errors may have been included. Yours sincerely, JOSE ALBERTO Staples Coding Level of Care Code New Pt Level 4 (39128) Diagnoses Elevated PSA R97.20 Prostatitis N41.9 Time Spent (min) 40
== END 2025-04-21 10:36 | disposition home or self-care (01) ==
LOC: HO.HUSH 09:47
PROVIDERS: PCP Family Medicine; Visit Provider Nurse Practitioner Family
DX: R97.20 Elevated prostate specific antigen [PSA] (principal); N41.9 Inflammatory disease of prostate, unspecified
CPT/HCPCS: 99204

== ENCOUNTER → 2025-04-21 09:47 | Outpatient (BNVA) | payer OTHER, SELFPAY | PROVIDERS: PCP Family Medicine; Visit Provider Nurse Practitioner Family | DX: R97.20 Elevated prostate specific antigen [PSA] (principal); N41.9 Inflammatory disease of prostate, unspecified | CPT/HCPCS: 99202 ==

== ENCOUNTER 2025-04-30 10:12 | Outpatient (REF) | payer OTHER, SELFPAY ==
--- NOTE | ~2025-04-30 | US_ITS ---
CLINICAL HISTORY: STENOSIS US bilateral carotid duplex Comparison: None Findings: No significant plaque within the common carotid arteries. Trmg-[id number]-[id number] plaque within the carotid bulbs. Isdt-gg-bnrgjavd plaque within the internal carotid arteries . Waveforms are normal morphology. Peak systolic and end-diastolic velocities: Right CCA: 121.0 cm/s Right ICA: 129.0 cm/s Right ICA EDV: 32.4 cm/sec Right ECA: Moderate stenosis Right vertebral artery flow antegrade. Left CCA: 112.0 cm/s Left ICA: 109.0 cm/s Left ICA EDV: 31.4 cm/sec Left ECA: Unremarkable Left vertebral artery flow antegrade. Criteria for grading carotid stenosis Stenosis % ICA PSV cm/s ICA/CCA PSV ratio ICA EDV 0-50% <125 <2.0 <40 50-69% 125-230 2.0-4.0 40-100 70% + > 230 >4.0 >100 Impression: 1. 50-79% stenosis right internal carotid artery. Less than 50% stenosis left internal carotid artery. Stenosis right external carotid artery. This document has been electronically signed by: Curtis Haney MD on 04/30/2025 13:04:35
== END 2025-04-30 10:13 | disposition home or self-care (01) ==
LOC: HO.HMGCX 10:12
PROVIDERS: PCP Family Medicine; Visit Provider Family Medicine
DX: I65.23 Occlusion and stenosis of bilateral carotid arteries (principal)
CPT/HCPCS: 93880

== ENCOUNTER → 2025-04-30 10:32 | Outpatient (BNV) | payer OTHER, SELFPAY | PROVIDERS: PCP Family Medicine; Visit Provider Radiology Diagnostic Radiology | DX: I65.23 Occlusion and stenosis of bilateral carotid arteries (principal) | CPT/HCPCS: 93880 ==